=== PATIENT | male | born 1985 | race Hispanic/Latino ===

== ENCOUNTER 2018-01-14 23:49 | Emergency (ER) | payer MEDICAID ==
[2018-01-14] MEDS ORDERED: ASPIRIN 325 MG TABLET ONE (23:59)
[2018-01-14] MEDS ORDERED: ONDANSETRON HCL 4 MG/2 ML VIAL ONE (23:59)
[2018-01-15 00:29] LABS: BASOPHILS % (AUTO) 0.4 % (0.0-5.0); HEMATOCRIT 41.4 % (42-54); MEAN CORPUSCULAR HEMOGLOBIN 30.7 pg (27.0-33.0); MEAN CORPUSCULAR HGB CONC 34.6 g/dL (32.0-36.0); MEAN CORPUSCULAR VOLUME 88.7 fL (79-99); MONOCYTES % (AUTO) 2.9 % (3.0-13.0); NEUTROPHILS % (AUTO) 84.7 % (40.0-77.0); PLATELET COUNT (AUTO) 339 K/uL (130-400); RED BLOOD CELL COUNT(AUTO) 4.67 MIL/uL (4.50-6.20); RED CELL DISTRIBUTION WIDTH 12.7 % (11.0-15.5)
[2018-01-15 00:39] LABS: CREATININE 2.1 mg/dL (0.5-1.5); POTASSIUM 4.7 mmol/L (3.5-5.1)
[2018-01-15 00:41] LABS: INR 1.02 (0.85-1.15); PARTIAL THROMBOPLASTIN TIME 24.5 SEC (26.3-35.5); PROTHROMBIN TIME 10.7 SEC (9.6-11.6)
[2018-01-15 00:43] LABS: AMPHET/METH SCREEN,URINE NEGATIVE (NEGATIVE); BARBITURATE SCREEN, URINE NEGATIVE (NEGATIVE); BENZODIAZEPINES SCREEN,URINE POSITIVE (NEGATIVE); CANNABINOID SCREEN,URINE POSITIVE (NEGATIVE); COCAINE SCREEN,URINE NEGATIVE (NEGATIVE); OPIATE SCREEN,URINE NEGATIVE (NEGATIVE); PHENCYCLIDINE SCREEN,URINE NEGATIVE (NEGATIVE)
[2018-01-15 00:53] LABS: ALBUMIN 4.1 g/dL (3.5-5.0); BILIRUBIN,TOTAL 0.4 mg/dL (0.2-1.0); TOTAL PROTEIN, SERUM 7.8 g/dL (6.0-8.3)
[2018-01-15 00:59] LABS: B-TYPE NATRIURETIC PEPTIDE 15 pg/mL (0-100)
[2018-01-15] MEDS ORDERED: SODIUM CHLORIDE 0.9% 1000ML 1,000 ML IV ONE (01:06)
== END 2018-01-15 01:39 | disposition home or self-care (01) ==
LOC: EDH 23:49
DX: R07.89 Other chest pain (principal); E78.5 Hyperlipidemia, unspecified; I10 Essential (primary) hypertension; Z87.891 Personal history of nicotine dependence
CPT/HCPCS: 36415; 71045; 80053; 80305; 82550; 83880; 84484; 85025; 85610; 85730; 93005; 94761; 96374; 99285; J2405; J7030

== ENCOUNTER 2018-06-24 22:51 | Emergency (ER) | payer MEDICAID ==
[2018-06-24 23:13] LABS: APPEARANCE,URINE Clear (CLEAR); BILIRUBIN,URINE Negative (NEGATIVE); COLOR,URINE Yellow (YELLOW); GLUCOSE, URINE (UA) Negative (NEGATIVE); KETONES,URINE Negative (NEGATIVE); LEUKOCYTE ESTERASE ,URINE Negative (NEGATIVE); NITRATE,URINE Negative (NEGATIVE); OCCULT BLOOD,URINE Negative (NEGATIVE); PROTEIN,URINE Negative (NEGATIVE); UROBILINOGEN,URINE 0.2 mg/dL (0.2-1.0)
[2018-06-24 23:22] LABS: AMPHET/METH SCREEN,URINE NEGATIVE (NEGATIVE); BARBITURATE SCREEN, URINE NEGATIVE (NEGATIVE); BENZODIAZEPINES SCREEN,URINE POSITIVE (NEGATIVE); CANNABINOID SCREEN,URINE POSITIVE (NEGATIVE); COCAINE SCREEN,URINE NEGATIVE (NEGATIVE); OPIATE SCREEN,URINE NEGATIVE (NEGATIVE); PHENCYCLIDINE SCREEN,URINE NEGATIVE (NEGATIVE)
[2018-06-24] MEDS ORDERED: ACETAMINOPHEN-CODEINE 300/30MG TAB ONE (23:54)
[2018-06-25 00:10] LABS: EOSINOPHILS % (AUTO) 2.2 % (0.0-8.0); HEMATOCRIT 36.7 % (42-54); LYMPHOCYTES % (AUTO) 39.6 % (21.0-51.0); MEAN CORPUSCULAR HEMOGLOBIN 30.7 pg (27.0-33.0); MEAN CORPUSCULAR VOLUME 87.6 fL (79-99); MONOCYTES % (AUTO) 7.5 % (3.0-13.0); NEUTROPHILS % (AUTO) 49.7 % (40.0-77.0); PLATELET COUNT (AUTO) 273 K/uL (130-400); RED CELL DISTRIBUTION WIDTH 13.5 % (11.0-15.5); WHITE BLOOD COUNT (AUTO) 7.1 K/uL (4.8-10.8)
[2018-06-25 00:18] LABS: CREATININE 1.1 mg/dL (0.5-1.5); POTASSIUM 3.3 mmol/L (3.5-5.1)
[2018-06-25 00:32] LABS: ALBUMIN 3.7 g/dL (3.5-5.0); BILIRUBIN,TOTAL 0.3 mg/dL (0.2-1.0); TOTAL PROTEIN, SERUM 7.1 g/dL (6.0-8.3)
[2018-06-25] MEDS ORDERED: SODIUM CHLORIDE 0.9% 1000ML 2,000 ML IV ONE (00:50)
[2018-06-25] MEDS ORDERED: KETOROLAC TROMETHAMINE 30MG/ML ONE (01:11)
[2018-06-25] MEDS ORDERED: IOHEXOL-350 75 ML VIAL IV ONE (02:58)
== END 2018-06-25 04:41 | disposition home or self-care (01) ==
LOC: EDH 22:51
CPT/HCPCS: 36415; 71101; 74177; 80053; 80305; 81003; 82550; 83690; 84484; 85025; 93005; 96361; 96374; J1885; J7030; Q9967

== ENCOUNTER 2018-12-12 22:22 | Emergency (ER) | payer MEDICAID ==
[2018-12-12] MEDS ORDERED: ASPIRIN 325 MG TABLET ONE (23:18)
[2018-12-12 23:37] LABS: BASOPHILS % (AUTO) 0.9 % (0.0-5.0); HEMATOCRIT 36.5 % (42-54); MEAN CORPUSCULAR HEMOGLOBIN 29.5 pg (27.0-33.0); MEAN CORPUSCULAR VOLUME 86.9 fL (79-99); MONOCYTES % (AUTO) 8.2 % (3.0-13.0); NEUTROPHILS % (AUTO) 56.9 % (40.0-77.0); NUCLEATED RED BLOOD CELLS 0.1 % (0.0-0.19); PLATELET COUNT (AUTO) 283 K/uL (130-400); WHITE BLOOD COUNT (AUTO) 10.1 K/uL (4.8-10.8)
[2018-12-12 23:38] LABS: APPEARANCE,URINE Clear (CLEAR); BILIRUBIN,URINE Negative (NEGATIVE); COLOR,URINE Yellow (YELLOW); GLUCOSE, URINE (UA) Negative (NEGATIVE); KETONES,URINE Negative (NEGATIVE); LEUKOCYTE ESTERASE ,URINE Negative (NEGATIVE); NITRATE,URINE Negative (NEGATIVE); OCCULT BLOOD,URINE Negative (NEGATIVE); PH,URINE 5.5 (5.0-8.0); PROTEIN,URINE Negative (NEGATIVE)
[2018-12-12 23:44] LABS: CREATININE 1.3 mg/dL (0.5-1.5); POTASSIUM 3.9 mmol/L (3.5-5.1)
[2018-12-12 23:45] LABS: AMPHET/METH SCREEN,URINE NEGATIVE (NEGATIVE); BARBITURATE SCREEN, URINE NEGATIVE (NEGATIVE); BENZODIAZEPINES SCREEN,URINE POSITIVE (NEGATIVE); CANNABINOID SCREEN,URINE POSITIVE (NEGATIVE); COCAINE SCREEN,URINE NEGATIVE (NEGATIVE); OPIATE SCREEN,URINE POSITIVE (NEGATIVE); PHENCYCLIDINE SCREEN,URINE NEGATIVE (NEGATIVE)
[2018-12-12 23:45] LABS: INR 0.97 (0.85-1.15); PARTIAL THROMBOPLASTIN TIME 23.1 SEC (26.3-35.5); PROTHROMBIN TIME 10.2 SEC (9.6-11.6)
[2018-12-12 23:49] LABS: ALBUMIN 3.7 g/dL (3.5-5.0); BILIRUBIN,TOTAL 0.1 mg/dL (0.2-1.0); TOTAL PROTEIN, SERUM 7.3 g/dL (6.0-8.3)
[2018-12-12 23:52] LABS: AMYLASE 52 U/L (25-115); LIPASE 190 U/L (114-286)
== END 2018-12-13 01:12 | disposition home or self-care (01) ==
LOC: EDH 22:22
DX: S50.12XA Contusion of left forearm, initial encounter (principal); R07.89 Other chest pain; G40.802 Other epilepsy, not intractable, without status epilepticus; F12.10 Cannabis abuse, uncomplicated; T42.4X5A Adverse effect of benzodiazepines, initial encounter; I10 Essential (primary) hypertension; E78.5 Hyperlipidemia, unspecified; I25.2 Old myocardial infarction; Z72.0 Tobacco use; Z79.899 Other long term (current) drug therapy; X58.XXXA Exposure to other specified factors, initial encounter; Y93.89 Activity, other specified; Y92.89 Other specified places as the place of occurrence of the external cause; Y99.8 Other external cause status
CPT/HCPCS: 36415; 71045; 80053; 80305; 81003; 82150; 82550; 83690; 84484; 85025; 85610; 85730; 93005

== ENCOUNTER 2019-02-02 00:05 | Emergency (ER) | payer MEDICAID ==
[2019-02-02] MEDS ORDERED: ONDANSETRON HCL 4 MG/2 ML VIAL ONE (00:43)
[2019-02-02] MEDS ORDERED: MORPHINE SULFATE 4 MG/1ML SYG ONE (00:43)
[2019-02-02] MEDS ORDERED: SODIUM CHLORIDE 0.9% 1000ML 1,000 ML IV ONE (02:31)
[2019-02-02] MEDS ORDERED: HYDROCODONE/ACETAMINOPHEN 5/325 MG TAB ONE (02:31)
[2019-02-02] MEDS ORDERED: LIDOCAINE HCL 1% 20 ML VIAL ONE (02:46)
== END 2019-02-02 03:42 | disposition home or self-care (01) ==
LOC: EDH 00:05
DX: S01.01XA Laceration without foreign body of scalp, initial encounter (principal); S60.221A Contusion of right hand, initial encounter; E78.5 Hyperlipidemia, unspecified; I10 Essential (primary) hypertension; I25.2 Old myocardial infarction; F12.10 Cannabis abuse, uncomplicated; Z79.82 Long term (current) use of aspirin; Z79.899 Other long term (current) drug therapy; W22.03XA Walked into furniture, initial encounter; Y93.89 Activity, other specified; Y92.098 Other place in other non-institutional residence as the place of occurrence of the external cause; Y99.8 Other external cause status
CPT/HCPCS: 12034; 70450; 72040; 73130; 96374; 96375; 99284; J2270; J2405; J7030

== ENCOUNTER 2019-05-11 13:25 | Emergency (ER) | payer MEDICAID ==
[~2019-05-11 13:25] MED LIST: ASPI-1181 PO; BUPR200T34 PO; DILT240C46 PO; FENO145T37 PO; IPRA21SP NS; MOME13HF IH; SIMV10TA6 PO
[2019-05-11] MEDS ORDERED: ACETAMINOPHEN EXTRA STRENGTH 500 MG TABLET ONE (13:45)
== END 2019-05-11 15:05 | disposition home or self-care (01) ==
LOC: EDH 13:25
DX: S63.91XA Sprain of unspecified part of right wrist and hand, initial encounter (principal); S60.221A Contusion of right hand, initial encounter; E78.5 Hyperlipidemia, unspecified; I10 Essential (primary) hypertension; I25.2 Old myocardial infarction; Z72.0 Tobacco use; W51.XXXA Accidental striking against or bumped into by another person, initial encounter; Y93.89 Activity, other specified; Y92.89 Other specified places as the place of occurrence of the external cause; Y99.8 Other external cause status
CPT/HCPCS: 73110; 73130

== ENCOUNTER 2019-05-17 22:08 | Inpatient (IN) | payer MEDICAID ==
[~2019-05-17] VITALS: Ht 172.7 cm; Wt 97.5 kg
[~2019-05-17 22:08] MED LIST changes: -SIMV10TA6 PO; +SIMV10TA97 PO
[2019-05-17 22:29] LABS: BASOPHILS % (AUTO) 1.9 % (0.0-5.0); EOSINOPHILS % (AUTO) 2.1 % (0.0-8.0); HEMATOCRIT 30.4 % (42-54); LYMPHOCYTES % (AUTO) 39.3 % (21.0-51.0); MEAN CORPUSCULAR HEMOGLOBIN 26.7 pg (27.0-33.0); MEAN CORPUSCULAR HGB CONC 33.6 g/dL (32.0-36.0); MEAN CORPUSCULAR VOLUME 79.6 fL (79-99); MONOCYTES % (AUTO) 7.1 % (3.0-13.0); NEUTROPHILS % (AUTO) 49.6 % (40.0-77.0); NUCLEATED RED BLOOD CELLS 0.1 % (0.0-0.19); PLATELET COUNT (AUTO) 378 K/uL (130-400); RED BLOOD CELL COUNT(AUTO) 3.82 MIL/uL (4.50-6.20); RED CELL DISTRIBUTION WIDTH 15.6 % (11.0-15.5); WHITE BLOOD COUNT (AUTO) 8.2 K/uL (4.8-10.8)
[2019-05-17] MEDS ORDERED: THIAMINE HCL 100 MG/ML 2ML VIAL ONE (22:34)
[2019-05-17] MEDS ORDERED: SODIUM CHLORIDE 0.9% 1000ML 1,000 ML IV ONE (22:34)
[2019-05-17] MEDS ORDERED: SODIUM CHLORIDE 0.9% 100 ML IV ONE ×2 (22:34→23:01)
[2019-05-17 22:43] LABS: CARBON DIOXIDE 27 mmol/L (21-32); CHLORIDE 102 mmol/L (101-111); CREATININE 1.3 mg/dL (0.5-1.5); GLOMERULAR FILTR. RATE CALC 67 mL/min (>60); GLUCOSE,RANDOM 97 mg/dL (70-105); POTASSIUM 3.7 mmol/L (3.5-5.1); SODIUM SERUM 141 mmol/L (136-145); UREA NITROGEN, BLOOD 8 mg/dL (7-18)
[2019-05-17 22:46] LABS: INR 1.06 (0.85-1.15); PARTIAL THROMBOPLASTIN TIME 22.6 SEC (26.3-35.5); PROTHROMBIN TIME 11.1 SEC (9.6-11.6)
[2019-05-17 23:02] LABS: ALANINE AMINOTRANSFERASE 56 U/L (12-78); ALBUMIN 3.8 g/dL (3.5-5.0); ALCOHOL, BLOOD 146 mg/dL (0-10); AMYLASE 47 U/L (25-115); ASPARTATE AMINOTRANSFERASE 35 U/L (10-37); BILIRUBIN,TOTAL 0.2 mg/dL (0.2-1.0); CREATINE KINASE, TOTAL 240 U/L (21-232); LIPASE 256 U/L (114-286); TOTAL PROTEIN, SERUM 7.1 g/dL (6.0-8.3)
[2019-05-17 23:06] LABS: ACETAMINOPHEN < 1 mcg/mL (10-29); SALICYLATE < 2.8 mg/dL (2.8-20.0)
[2019-05-17 23:35] LABS: APPEARANCE,URINE Clear (CLEAR); BILIRUBIN,URINE Negative (NEGATIVE); COLOR,URINE Yellow (YELLOW); GLUCOSE, URINE (UA) Negative (NEGATIVE); KETONES,URINE Negative (NEGATIVE); LEUKOCYTE ESTERASE ,URINE Negative (NEGATIVE); NITRATE,URINE Negative (NEGATIVE); OCCULT BLOOD,URINE Negative (NEGATIVE); PH,URINE 5.5 (5.0-8.0); PROTEIN,URINE Negative (NEGATIVE); UROBILINOGEN,URINE 0.2 mg/dL (0.2-1.0)
[2019-05-18] VITALS (7 sets, daily range): BP systolic 111–156; BP diastolic 71–103
[2019-05-18] MEDS ORDERED: CHLORDIAZEPOXIDE HCL 25 MG CAP PO PRN ×2
[2019-05-18] MEDS ORDERED: PHARMACY COMMUNICATION MISC PRN
[2019-05-18] MEDS ORDERED: LORAZEPAM 2 MG/ML 1 ML VIAL IVP PRN
[2019-05-18] MEDS ORDERED: ONDANSETRON HCL 4 MG/2 ML VIAL IV PRN
[2019-05-18] MEDS ORDERED: M.V.I. IV [ADULT] 10 ML VIAL IV ONE (00:20)
[2019-05-18] MEDS ORDERED: THIAMINE HCL 100 MG/ML 2ML VIAL ONE (00:20)
[2019-05-18] MEDS ORDERED: FOLIC ACID 5 MG/ML 10 ML VIAL ONE (00:22)
[2019-05-18] MEDS ORDERED: SODIUM CHLORIDE 0.9% 1000ML 1,000 ML IV ONE (00:24)
[2019-05-18 00:25] LABS: AMPHET/METH SCREEN,URINE NEGATIVE (NEGATIVE); BARBITURATE SCREEN, URINE NEGATIVE (NEGATIVE); BENZODIAZEPINES SCREEN,URINE POSITIVE (NEGATIVE); CANNABINOID SCREEN,URINE POSITIVE (NEGATIVE); COCAINE SCREEN,URINE NEGATIVE (NEGATIVE); OPIATE SCREEN,URINE NEGATIVE (NEGATIVE); PHENCYCLIDINE SCREEN,URINE NEGATIVE (NEGATIVE)
[2019-05-18] MEDS: PANTOPRAZOLE SODIUM 80 MG in SODIUM CHLORIDE 0.9% 100 ML IV SCH ×3 (01:00→21:22)
--- NOTE | 2019-05-18 02:21 | NUR ---
RECEIVED PT FROM ED PT A/A/O X3. IV FLUIDS INFUSING BILAT INTO L/R AC 18 G PIV. PT ON RA, NO S/S OF RESP DISTRESS. NO C/O CHEST PAIN. PT HAS HANDCUFFS TO LEFT WRIST FASTENED AND A SAULT [employer] SITE SAFETY MANAGER AT BEDSIDE. SEIZURE PRECAUTIONS IMPLEMENTED AT THIS TIME. LAST KNOWN SEIZURE WAS 3 MONTHS AGO, A LACERATION TO THE TOP OF HIS HEAD RESULTED FROM FALLING AND HITTING HIS HEAD DURING THE SEIZURE. WILL CONTINUE TO MONITOR.
--- NOTE | 2019-05-18 02:30 | NUR ---
MELLYIA PT SCORED A 5. NO MEDICATIONS ADMINISTERED AT THIS TIME.
[2019-05-18] MEDS ORDERED: OMEP40CA13 PO (03:20)
[2019-05-18] MEDS ORDERED: DOXA2TAB2 PO (03:20)
[2019-05-18] MEDS ORDERED: IRON1CAP32 PO (03:20)
[2019-05-18] MEDS ORDERED: MULT-1224 PO (03:20)
[2019-05-18] MEDS ORDERED: HYD25 PO (03:20)
[2019-05-18] MEDS ORDERED: CETI10TA57 PO (03:20)
[2019-05-18] MEDS ORDERED: SERT25TA5 PO (03:20)
--- NOTE | 2019-05-18 03:20 | NUR ---
PAIN C/O PAIN TO ABDOMEN AREA. PAGED HOSPITALIST. PIERCE BARNES ORDERED MAALOX AT THIS TIME PRN. ORDERS ENTERED INTO Nor1.
[2019-05-18] MEDS ORDERED: MAG HYDROX/AL HYDROX/SIMETH ES 30 ML SUSP UDCUP PO PRN (03:30)
--- NOTE | 2019-05-18 05:09 | NUR ---
HOME MEDS ENTERED INFORMED CHURN DRILL OPERATOR MOLLY THAT HOME MEDS HAVE BEEN UPDATED IN SYSTEM FOR REVIEW.
[2019-05-18 06:36] LABS: BASOPHILS % (AUTO) 0.8 % (0.0-5.0); EOSINOPHILS % (AUTO) 2.2 % (0.0-8.0); HEMATOCRIT 29.9 % (42-54); LYMPHOCYTES % (AUTO) 38.8 % (21.0-51.0); MEAN CORPUSCULAR HEMOGLOBIN 26.9 pg (27.0-33.0); MEAN CORPUSCULAR HGB CONC 33.4 g/dL (32.0-36.0); MEAN CORPUSCULAR VOLUME 80.5 fL (79-99); MONOCYTES % (AUTO) 8.3 % (3.0-13.0); NEUTROPHILS % (AUTO) 49.9 % (40.0-77.0); PLATELET COUNT (AUTO) 322 K/uL (130-400); RED BLOOD CELL COUNT(AUTO) 3.71 MIL/uL (4.50-6.20); RED CELL DISTRIBUTION WIDTH 15.3 % (11.0-15.5); WHITE BLOOD COUNT (AUTO) 7.9 K/uL (4.8-10.8)
[2019-05-18 08:36] LABS: CREATININE 1.2 mg/dL (0.5-1.5); POTASSIUM 3.7 mmol/L (3.5-5.1)
[2019-05-18] MEDS: BUPROPION HCL 100 MG PO SCH ×2 (09:00→19:42)
[2019-05-18] MEDS: FE FUMARATE/FA/MV, MIN COMB#15 1 TAB PO SCH (09:00)
[2019-05-18] MEDS: MULTIVITAMIN WITH MINERALS TABLET PO SCH (09:00)
[2019-05-18] MEDS: ASPIRIN 81 MG EC TAB PO SCH (09:00)
[2019-05-18] MEDS: FENOFIBRATE NANOCRYSTALLIZED 145 MG TAB PO SCH (09:00)
[2019-05-18] MEDS: HYDROXYZINE HCL 25 MG TABLET PO SCH ×2 (09:00→19:41)
[2019-05-18] MEDS: SERTRALINE HCL 50 MG TABLET PO SCH (09:00)
[2019-05-18] MEDS: DILTIAZEM HCL 120 MG CAP.SR.24H PO SCH (09:00)
[2019-05-18] MEDS: CETIRIZINE HCL 5 MG TABLET PO SCH (09:00)
[2019-05-18] MEDS: THIAMINE HCL 100 MG, FOLIC ACID 1 MG, M.V.I. IV [ADULT] 10 ML in SODIUM CHLORIDE 0.9% 1... IV SCH ×5 (09:32)
[2019-05-18 12:38] LABS: HEMATOCRIT 30.4 % (42-54)
--- NOTE | 2019-05-18 15:25 | NUR ---
INITIAL: Met w pt this afternoon, police pilot @ the bedside. Per pt prior to admission was living w parents/ and children. He mentions that prior to admission he was independent w ambulation and ADLs. He does not own any DME or receive services. CM to continue to follow and wait for Md recommendations. Pt is currently under police custody. Addendum: 05/18/19 at 1527 by NAI ADAMS CM Amended: Links added.
[2019-05-18 16:00] LABS: HEMATOCRIT 30.6 % (42-54)
[2019-05-18] MEDS: MORPHINE SULFATE 2 MG/ML 1ML SYG IVP PRN ×2 (19:39→23:32)
[2019-05-18] MEDS: DOXAZOSIN MESYLATE 2 MG TABLET PO SCH (19:41)
[2019-05-18] MEDS: SIMVASTATIN 10 MG TABLET PO SCH (19:42)
[2019-05-18 19:49] LABS: HEMATOCRIT 31.8 % (42-54)
[2019-05-18] MEDS: LORAZEPAM 2 MG/ML 1 ML VIAL IVP PRN (22:39)
[2019-05-19] VITALS (22 sets, daily range): BP systolic 110–147; BP diastolic 65–100
[2019-05-19 00:03] LABS: HEMATOCRIT 30.4 % (42-54)
[2019-05-19] MEDS: MORPHINE SULFATE 2 MG/ML 1ML SYG IVP PRN ×4 (03:35→19:55)
[2019-05-19] MEDS: LORAZEPAM 2 MG/ML 1 ML VIAL IVP PRN ×3 (04:47→15:04)
[2019-05-19 04:59] LABS: BASOPHILS % (AUTO) 1.2 % (0.0-5.0); HEMATOCRIT 32.5 % (42-54); LYMPHOCYTES % (AUTO) 39.3 % (21.0-51.0); MEAN CORPUSCULAR HEMOGLOBIN 26.5 pg (27.0-33.0); MEAN CORPUSCULAR HGB CONC 33.1 g/dL (32.0-36.0); MEAN CORPUSCULAR VOLUME 80.1 fL (79-99); MONOCYTES % (AUTO) 8.5 % (3.0-13.0); PLATELET COUNT (AUTO) 363 K/uL (130-400); RED BLOOD CELL COUNT(AUTO) 4.06 MIL/uL (4.50-6.20); RED CELL DISTRIBUTION WIDTH 15.6 % (11.0-15.5); WHITE BLOOD COUNT (AUTO) 7.7 K/uL (4.8-10.8)
[2019-05-19 05:08] LABS: CREATININE 1.3 mg/dL (0.5-1.5); POTASSIUM 3.8 mmol/L (3.5-5.1)
[2019-05-19] MEDS: BUPROPION HCL 100 MG PO SCH ×2 (09:00→19:55)
[2019-05-19] MEDS: PANTOPRAZOLE SODIUM 80 MG in SODIUM CHLORIDE 0.9% 100 ML IV SCH ×2 (09:06→17:38)
[2019-05-19] MEDS: THIAMINE HCL 100 MG, FOLIC ACID 1 MG, M.V.I. IV [ADULT] 10 ML in SODIUM CHLORIDE 0.9% 1... IV SCH (09:14)
--- NOTE | 2019-05-19 12:00 | NUR ---
PATIENT TAKEN DOWNSTAIRS FOR EGD AWAKE AND ALERT, VOICES NO COMPLAINTS
[2019-05-19] MEDS ORDERED: PROPOFOL 10 MG/ML 20ML VIAL IV ONE ×2 (12:51→12:55)
[2019-05-19 14:59] LABS: BASOPHILS % (AUTO) 1.6 % (0.0-5.0); EOSINOPHILS % (AUTO) 3.8 % (0.0-8.0); HEMATOCRIT 31.3 % (42-54); LYMPHOCYTES % (AUTO) 33.4 % (21.0-51.0); MEAN CORPUSCULAR HEMOGLOBIN 26.4 pg (27.0-33.0); MEAN CORPUSCULAR HGB CONC 33.1 g/dL (32.0-36.0); MEAN CORPUSCULAR VOLUME 79.6 fL (79-99); MONOCYTES % (AUTO) 8.4 % (3.0-13.0); NEUTROPHILS % (AUTO) 52.8 % (40.0-77.0); PLATELET COUNT (AUTO) 317 K/uL (130-400); RED BLOOD CELL COUNT(AUTO) 3.93 MIL/uL (4.50-6.20)
[2019-05-19] MEDS: FENOFIBRATE NANOCRYSTALLIZED 145 MG TAB PO SCH (15:07)
[2019-05-19] MEDS: ASPIRIN 81 MG EC TAB PO SCH (15:07)
[2019-05-19] MEDS: FE FUMARATE/FA/MV, MIN COMB#15 1 TAB PO SCH (15:07)
[2019-05-19] MEDS: SERTRALINE HCL 50 MG TABLET PO SCH (15:07)
[2019-05-19] MEDS: MULTIVITAMIN WITH MINERALS TABLET PO SCH (15:07)
[2019-05-19] MEDS: HYDROXYZINE HCL 25 MG TABLET PO SCH ×2 (15:08→19:54)
[2019-05-19] MEDS: DILTIAZEM HCL 120 MG CAP.SR.24H PO SCH (15:08)
[2019-05-19] MEDS: CETIRIZINE HCL 5 MG TABLET PO SCH (15:08)
[2019-05-19 15:10] LABS: CREATININE 1.1 mg/dL (0.5-1.5); POTASSIUM 3.8 mmol/L (3.5-5.1)
[2019-05-19 15:11] LABS: INR 1.03 (0.85-1.15); PROTHROMBIN TIME 10.8 SEC (9.6-11.6)
[2019-05-19] MEDS ORDERED: PEG 3350/NA SULF,BICARB,CL/KCL 4000 ML SOLN PO SCH (17:00)
[2019-05-19] MEDS: SIMVASTATIN 10 MG TABLET PO SCH (19:54)
[2019-05-19] MEDS: DOXAZOSIN MESYLATE 2 MG TABLET PO SCH (19:54)
[2019-05-20] VITALS (17 sets, daily range): BP systolic 103–166; BP diastolic 63–91
[2019-05-20] MEDS: MORPHINE SULFATE 2 MG/ML 1ML SYG IVP PRN (00:21)
[2019-05-20] MEDS: PANTOPRAZOLE SODIUM 80 MG in SODIUM CHLORIDE 0.9% 100 ML IV SCH ×2 (00:22→13:40)
[2019-05-20] MEDS: LORAZEPAM 2 MG/ML 1 ML VIAL IVP PRN ×2 (01:29→12:43)
[2019-05-20 04:58] LABS: BASOPHILS % (AUTO) 0.9 % (0.0-5.0); EOSINOPHILS % (AUTO) 3.7 % (0.0-8.0); HEMATOCRIT 30.7 % (42-54); LYMPHOCYTES % (AUTO) 35.8 % (21.0-51.0); MEAN CORPUSCULAR HEMOGLOBIN 26.9 pg (27.0-33.0); MEAN CORPUSCULAR HGB CONC 33.4 g/dL (32.0-36.0); MEAN CORPUSCULAR VOLUME 80.3 fL (79-99); MONOCYTES % (AUTO) 8.7 % (3.0-13.0); NEUTROPHILS % (AUTO) 50.9 % (40.0-77.0); NUCLEATED RED BLOOD CELLS 0.1 % (0.0-0.19); PLATELET COUNT (AUTO) 296 K/uL (130-400); RED BLOOD CELL COUNT(AUTO) 3.82 MIL/uL (4.50-6.20); RED CELL DISTRIBUTION WIDTH 15.5 % (11.0-15.5); WHITE BLOOD COUNT (AUTO) 6.5 K/uL (4.8-10.8)
[2019-05-20 05:35] LABS: ALBUMIN 3.6 g/dL (3.5-5.0); BILIRUBIN,TOTAL 0.8 mg/dL (0.2-1.0); CREATININE 1.2 mg/dL (0.5-1.5); POTASSIUM 3.7 mmol/L (3.5-5.1)
--- NOTE | 2019-05-20 08:15 | NUR ---
Pt off the floor for colonoscopy at this time
[2019-05-20] MEDS ORDERED: PROPOFOL 10 MG/ML 20ML VIAL IV ONE ×2 (08:26)
[2019-05-20] MEDS: FENOFIBRATE NANOCRYSTALLIZED 145 MG TAB PO SCH (09:00)
[2019-05-20] MEDS: DILTIAZEM HCL 120 MG CAP.SR.24H PO SCH (09:00)
[2019-05-20] MEDS: ASPIRIN 81 MG EC TAB PO SCH (09:00)
[2019-05-20] MEDS: BUPROPION HCL 100 MG PO SCH (09:00)
[2019-05-20] MEDS: SERTRALINE HCL 50 MG TABLET PO SCH (09:00)
[2019-05-20] MEDS: MULTIVITAMIN WITH MINERALS TABLET PO SCH (09:00)
[2019-05-20] MEDS: CETIRIZINE HCL 5 MG TABLET PO SCH (09:00)
[2019-05-20] MEDS: HYDROXYZINE HCL 25 MG TABLET PO SCH (09:00)
[2019-05-20] MEDS: FE FUMARATE/FA/MV, MIN COMB#15 1 TAB PO SCH (09:00)
[2019-05-20] MEDS: THIAMINE HCL 100 MG, FOLIC ACID 1 MG, M.V.I. IV [ADULT] 10 ML in SODIUM CHLORIDE 0.9% 1... IV SCH (09:30)
[2019-05-20] MEDS ORDERED: PHARMACY COMMUNICATION MISC SCH ×2 (11:30)
[2019-05-20] MEDS ORDERED: PSYLLIUM SEED 1 EACH PACKET PO SCH (11:50)
[2019-05-20] MEDS ORDERED: HYD25 PO (15:18)
--- NOTE | 2019-05-20 16:51 | NUR ---
Pt discharge in custody with [facility] department, home meds resumed, pt verbarlized understanding of d/c instruction, pt to follow up Dr. Harris in one week for pathology results, follow up with PCP for transition care, pt d/c on high fiber diet, PIV taken off, no complication noted, pt escorted with Conservation Planner off the floor.
== END 2019-05-20 16:25 | DRG 253 ==
LOC: EDH 22:08 → OBSVTOIN 23:40 → EDHIP 23:40 → EEVIPCON 23:40 → 3CH 05-18 02:19
PROVIDERS: ADMIT Hospitalist; ATTEND Hospitalist
PROC: 0DB68ZX Excision of Stomach, Via Natural or Artificial Opening Endoscopic, Diagnostic (ICD-10-PCS; 2019-05-19)
PROC: 0DB48ZX Excision of Esophagogastric Junction, Via Natural or Artificial Opening Endoscopic, Diagnostic (ICD-10-PCS; 2019-05-19)
PROC: 0DBN8ZZ Excision of Sigmoid Colon, Via Natural or Artificial Opening Endoscopic (ICD-10-PCS; principal; 2019-05-20)
DX: K92.2 Gastrointestinal hemorrhage, unspecified (principal); D12.5 Benign neoplasm of sigmoid colon; E66.9 Obesity, unspecified; F10.129 Alcohol abuse with intoxication, unspecified; D50.9 Iron deficiency anemia, unspecified; K22.8 Other specified diseases of esophagus; K31.89 Other diseases of stomach and duodenum; I10 Essential (primary) hypertension; K64.8 Other hemorrhoids; K64.4 Residual hemorrhoidal skin tags; F19.10 Other psychoactive substance abuse, uncomplicated; E78.5 Hyperlipidemia, unspecified; G40.909 Epilepsy, unspecified, not intractable, without status epilepticus; J45.909 Unspecified asthma, uncomplicated; Z68.32 Body mass index [BMI] 32.0-32.9, adult; Z82.49 Family history of ischemic heart disease and other diseases of the circulatory system; Z82.3 Family history of stroke; Z83.3 Family history of diabetes mellitus; I25.2 Old myocardial infarction
CPT/HCPCS: 36415; 43239; 45380; 71045; 72100; 80048; 80053; 80061; 80305; 81003; 82150; 82270; 82550; 83690; 84484; 85014; 85018; 85025; 85610; 85730; 86850; 86900; 86901; 88305; 93005; 99291; A4606; C9113; G0378; G0480; G0481; J2060; J2704; J3411; J3490; J7030

== ENCOUNTER 2019-05-24 18:35 | Observation (INO) | payer MEDICAID ==
[~2019-05-24] VITALS: Ht 172.7 cm; Wt 111.5 kg
[~2019-05-24 18:35] MED LIST changes: +CETI10TA57 PO; +DOXA2TAB2 PO; +HYD25 PO; +IRON1CAP32 PO; +MULT-1224 PO; +OMEP40CA13 PO; +SERT25TA5 PO; +SIMV10TA6 PO; -SIMV10TA97 PO
[2019-05-24 18:52] LABS: BASOPHILS % (AUTO) 0.9 % (0.0-5.0); EOSINOPHILS % (AUTO) 2.1 % (0.0-8.0); HEMATOCRIT 34.8 % (42-54); LYMPHOCYTES % (AUTO) 27.8 % (21.0-51.0); MEAN CORPUSCULAR HEMOGLOBIN 26.5 pg (27.0-33.0); MEAN CORPUSCULAR HGB CONC 32.8 g/dL (32.0-36.0); MEAN CORPUSCULAR VOLUME 80.7 fL (79-99); MONOCYTES % (AUTO) 8.3 % (3.0-13.0); NEUTROPHILS % (AUTO) 60.9 % (40.0-77.0); PLATELET COUNT (AUTO) 335 K/uL (130-400); RED BLOOD CELL COUNT(AUTO) 4.32 MIL/uL (4.50-6.20); RED CELL DISTRIBUTION WIDTH 15.9 % (11.0-15.5); WHITE BLOOD COUNT (AUTO) 8.8 K/uL (4.8-10.8)
[2019-05-24 19:04] LABS: CREATININE 1.8 mg/dL (0.5-1.5); POTASSIUM 4.1 mmol/L (3.5-5.1)
[2019-05-24] MEDS ORDERED: THIAMINE HCL 100 MG/ML 2ML VIAL ONE (19:07)
[2019-05-24] MEDS ORDERED: SODIUM CHLORIDE 0.9% 1000ML 1,000 ML IV ONE ×2 (19:07→22:15)
[2019-05-24 19:09] LABS: ALBUMIN 4.1 g/dL (3.5-5.0); BILIRUBIN,TOTAL 0.2 mg/dL (0.2-1.0)
[2019-05-24] MEDS ORDERED: CHLORDIAZEPOXIDE HCL 25 MG CAP ONE (19:20)
[2019-05-24 20:00] LABS: APPEARANCE,URINE Turbid (CLEAR); BILIRUBIN,URINE Negative (NEGATIVE); COLOR,URINE Yellow (YELLOW); GLUCOSE, URINE (UA) Negative (NEGATIVE); KETONES,URINE Negative (NEGATIVE); LEUKOCYTE ESTERASE ,URINE Negative (NEGATIVE); NITRATE,URINE Negative (NEGATIVE); OCCULT BLOOD,URINE Negative (NEGATIVE); PH,URINE 6.5 (5.0-8.0); PROTEIN,URINE POS 1+ mg/dL (NEGATIVE); UROBILINOGEN,URINE 0.2 mg/dL (0.2-1.0)
[2019-05-24 20:09] LABS: AMPHET/METH SCREEN,URINE NEGATIVE (NEGATIVE); BARBITURATE SCREEN, URINE NEGATIVE (NEGATIVE); BENZODIAZEPINES SCREEN,URINE POSITIVE (NEGATIVE); CANNABINOID SCREEN,URINE POSITIVE (NEGATIVE); COCAINE SCREEN,URINE NEGATIVE (NEGATIVE); OPIATE SCREEN,URINE NEGATIVE (NEGATIVE); PHENCYCLIDINE SCREEN,URINE NEGATIVE (NEGATIVE)
[2019-05-24 20:31] LABS: AMORPHOUS SEDIMENT,UR Few /LPF (None Seen); BACTERIA,URINE Few /HPF (None Seen); MUCUS,URINE Many LPF (None Seen); RBC,URINE None Seen /HPF (0-1); SQUAMOUS EPITHELIAL CELL,UR None Seen /HPF (0-2); WBC,URINE 0-1 /HPF (0-1)
[2019-05-24 20:32] LABS: HYALINE CASTS, URINE 0-1 /LPF (0-1 /LPF)
[2019-05-24] MEDS ORDERED: FOSPHENYTOIN SODIUM 500 MG/10ML VIAL IJ ONE (21:19)
[2019-05-24] MEDS ORDERED: SODIUM CHLORIDE 0.9% 250 ML IV ONE (21:20)
[2019-05-24 23:50] VITALS: BP 153/99
[2019-05-25] MEDS ORDERED: FLU VACC QS2019-20 36MOS UP/PF 60 MCG/0.5 ML ML IM ONE (01:45)
[2019-05-25] MEDS ORDERED: SODIUM CHLORIDE 0.9% 1000ML 1,000 ML IV SCH (02:22)
[2019-05-25] MEDS ORDERED: HYDRALAZINE HCL 20 MG/ML VIAL IV PRN (02:30)
[2019-05-25] MEDS ORDERED: ONDANSETRON HCL 4 MG/2 ML VIAL IV PRN (02:30)
[2019-05-25] MEDS ORDERED: ACETAMINOPHEN 325 MG TAB PO PRN ×2 (02:30)
[2019-05-25 03:00] VITALS: BP 132/80
[2019-05-25] MEDS ORDERED: ACETAMINOPHEN 325 MG TAB ONE (03:18)
[2019-05-25 06:06] LABS: EOSINOPHILS % (AUTO) 1.4 % (0.0-8.0); HEMATOCRIT 29.6 % (42-54); LYMPHOCYTES % (AUTO) 27.3 % (21.0-51.0); MEAN CORPUSCULAR HEMOGLOBIN 26.8 pg (27.0-33.0); MEAN CORPUSCULAR HGB CONC 33.2 g/dL (32.0-36.0); MEAN CORPUSCULAR VOLUME 80.7 fL (79-99); MONOCYTES % (AUTO) 8.3 % (3.0-13.0); PLATELET COUNT (AUTO) 283 K/uL (130-400); RED BLOOD CELL COUNT(AUTO) 3.67 MIL/uL (4.50-6.20); RED CELL DISTRIBUTION WIDTH 16.2 % (11.0-15.5); WHITE BLOOD COUNT (AUTO) 9.4 K/uL (4.8-10.8)
[2019-05-25 06:13] LABS: CREATININE 1.5 mg/dL (0.5-1.5); POTASSIUM 3.6 mmol/L (3.5-5.1)
[2019-05-25 08:00] VITALS: BP 130/75
--- NOTE | 2019-05-25 08:00 | NUR ---
PT AAO X 3 REVIEW PLAN OF CARE PT DENIES ANY SEIZURES OR DISCOMFORT. CALM MONITOR .CALL LIGHT IN REACH....
[2019-05-25] MEDS ORDERED: FAMOTIDINE/PF 20 MG/2 ML VIAL IV SCH (09:00)
[2019-05-25] MEDS ORDERED: ENOXAPARIN SODIUM 30 MG/0.3 ML SQ SCH (09:00)
[2019-05-25 11:22] VITALS: BP 128/83
--- NOTE | 2019-05-25 13:00 | NUR ---
DC PLAN VISITED WITH PATIENT. PATIENT LIVES WITH SPOUSE. INDEPENDENT ABLE TO PERFORM ADL'S. PATIENT HAS NO SERVICES OR DME'S. WANTS MEDICATIONS FOR ALCOHOL WITHDRAWL. SAID HE STOPPED DRINKING AND USING THC 3 WEEKS AGO. PATIENT HAS SEEN DR. DE LA FUENTE FOR PTSD. Addendum: 05/25/19 at 1303 by AV NASSAR RN CM Amended: Links added.
[2019-05-25 16:00] VITALS: BP 134/92
--- NOTE | 2019-05-25 18:33 | NUR ---
DISCHARGE SUMMARY REVIEW WITH PT; AND TO FOLLOW WITH PRIVATE REGARDING A DRVangie TO TAKE CARE OF HIS SEIZURES . PT HAS A PRIVATE AND WILL BE SEEING DRVangie THIS COMING WEEKS, SL TO HIS LT HAND DC ,WITH NO REDNESS NOTED . A DRSG APPLICATION ON. DENIES ANY DISCOMFORT.
[2019-05-25] MEDS ORDERED: HYDROXYZINE HCL 25 MG TABLET PO SCH (21:00)
[2019-05-25] MEDS ORDERED: FAMOTIDINE 20MG TAB 20 MG TAB PO SCH (21:00)
[2019-05-25] MEDS ORDERED: DOXAZOSIN MESYLATE 2 MG TABLET PO SCH (21:00)
[2019-05-25] MEDS ORDERED: SIMVASTATIN 10 MG TABLET PO SCH (21:00)
[2019-05-26] MEDS ORDERED: MULTIVITAMIN WITH MINERALS TABLET PO SCH (09:00)
[2019-05-26] MEDS ORDERED: CETIRIZINE HCL 5 MG TABLET PO SCH (09:00)
[2019-05-26] MEDS ORDERED: FENOFIBRATE NANOCRYSTALLIZED 145 MG TAB PO SCH (09:00)
[2019-05-26] MEDS ORDERED: [UNRECOGNIZED DRUG - OTHER] PO SCH (09:00)
[2019-05-26] MEDS ORDERED: C NO 9 PO SCH (09:00)
[2019-05-26] MEDS ORDERED: IRON FUM PO SCH (09:00)
[2019-05-26] MEDS ORDERED: VIT B PO SCH (09:00)
[2019-05-26] MEDS ORDERED: SERTRALINE HCL 50 MG TABLET PO SCH (09:00)
== END 2019-05-25 18:25 | disposition home or self-care (01) ==
LOC: EDH 18:35 → EDHIP 18:36 → INTOOBSV 18:36 → EDHIP 22:01 → UNDOADMIN 22:01 → 3BH 22:44
PROVIDERS: ADMIT Internal Medicine; ATTEND Internal Medicine
DX: R55 Syncope and collapse (principal); I10 Essential (primary) hypertension; E78.5 Hyperlipidemia, unspecified; I25.2 Old myocardial infarction; G40.909 Epilepsy, unspecified, not intractable, without status epilepticus; F10.239 Alcohol dependence with withdrawal, unspecified; F12.20 Cannabis dependence, uncomplicated; E66.01 Morbid (severe) obesity due to excess calories; F17.290 Nicotine dependence, other tobacco product, uncomplicated; Z79.899 Other long term (current) drug therapy; Z23 Encounter for immunization; Z68.37 Body mass index [BMI] 37.0-37.9, adult
CPT/HCPCS: 36415 ×2; 70450; 80048; 80053; 80305; 81001; 82550; 84484; 85025 ×2; 90471; 96361; 96372; 96374; 99291; G0378 ×3; J1650; J3411; J3490; J7030 ×4; Q2009

== ENCOUNTER 2019-07-11 22:38 | Emergency (ER) | payer MEDICAID ==
[~2019-07-11 22:38] MED LIST changes: -ASPI-1181 PO; -SIMV10TA6 PO; +SIMV10TA97 PO
[2019-07-11] MEDS ORDERED: SODIUM CHLORIDE 0.9% 1000ML 2,000 ML IV ONE (22:49)
[2019-07-11 23:28] LABS: BASOPHILS % (AUTO) 0.8 % (0.0-5.0); HEMATOCRIT 37.4 % (42-54); LYMPHOCYTES % (AUTO) 43.4 % (21.0-51.0); MEAN CORPUSCULAR HEMOGLOBIN 26.8 pg (27.0-33.0); MEAN CORPUSCULAR VOLUME 81.2 fL (79-99); MONOCYTES % (AUTO) 6.5 % (3.0-13.0); NEUTROPHILS % (AUTO) 48.3 % (40.0-77.0); PLATELET COUNT (AUTO) 308 K/uL (130-400); RED BLOOD CELL COUNT(AUTO) 4.61 MIL/uL (4.50-6.20); RED CELL DISTRIBUTION WIDTH 17.4 % (11.0-15.5); WHITE BLOOD COUNT (AUTO) 9.8 K/uL (4.8-10.8)
[2019-07-11 23:30] LABS: CREATININE 1.3 mg/dL (0.5-1.5); POTASSIUM 3.3 mmol/L (3.5-5.1)
[2019-07-11 23:32] LABS: APPEARANCE,URINE Clear (CLEAR); BILIRUBIN,URINE Negative (NEGATIVE); COLOR,URINE Yellow (YELLOW); GLUCOSE, URINE (UA) Negative (NEGATIVE); KETONES,URINE Negative (NEGATIVE); LEUKOCYTE ESTERASE ,URINE Negative (NEGATIVE); NITRATE,URINE Negative (NEGATIVE); OCCULT BLOOD,URINE Negative (NEGATIVE); PH,URINE 5.5 (5.0-8.0); PROTEIN,URINE POS 1+ mg/dL (NEGATIVE); UROBILINOGEN,URINE 0.2 mg/dL (0.2-1.0)
[2019-07-11 23:37] LABS: ALBUMIN 3.8 g/dL (3.5-5.0); BILIRUBIN,TOTAL 0.2 mg/dL (0.2-1.0); TOTAL PROTEIN, SERUM 7.2 g/dL (6.0-8.3)
[2019-07-11 23:42] LABS: AMPHET/METH SCREEN,URINE NEGATIVE (NEGATIVE); BARBITURATE SCREEN, URINE NEGATIVE (NEGATIVE); BENZODIAZEPINES SCREEN,URINE POSITIVE (NEGATIVE); CANNABINOID SCREEN,URINE POSITIVE (NEGATIVE); COCAINE SCREEN,URINE POSITIVE (NEGATIVE); OPIATE SCREEN,URINE NEGATIVE (NEGATIVE); PHENCYCLIDINE SCREEN,URINE NEGATIVE (NEGATIVE)
[2019-07-11 23:46] LABS: BACTERIA,URINE Few /HPF (None Seen); RBC,URINE 0-1 /HPF (0-1); SQUAMOUS EPITHELIAL CELL,UR 0-2 /HPF (0-2); WBC,URINE 0-1 /HPF (0-1)
[2019-07-12] MEDS ORDERED: LEVETIRACETAM 500 MG/5 ML SD VIAL IV ONE (00:03)
[2019-07-12] MEDS ORDERED: DiphenhydrAMINE HCL 50 MG/ML VIAL ONE (00:04)
[2019-07-12] MEDS ORDERED: SODIUM CHLORIDE 0.9% 100 ML IV ONE (00:06)
== END 2019-07-12 03:32 | disposition home or self-care (01) ==
LOC: EDH 22:38
DX: F10.129 Alcohol abuse with intoxication, unspecified (principal); R56.9 Unspecified convulsions; E86.9 Volume depletion, unspecified; F14.10 Cocaine abuse, uncomplicated; I10 Essential (primary) hypertension; E78.5 Hyperlipidemia, unspecified; I25.2 Old myocardial infarction; Z79.899 Other long term (current) drug therapy; Z79.82 Long term (current) use of aspirin; Z72.0 Tobacco use
CPT/HCPCS: 36415 ×2; 80053; 80305; 81001; 82550; 83605 ×2; 84484; 85025; 93005; 96361; 96365; 96366; 96375; 99285; G0480; J1200; J1953; J7030

== ENCOUNTER 2019-07-22 20:58 | Emergency (ER) | payer MEDICAID ==
[2019-07-22 21:55] LABS: EOSINOPHILS % (AUTO) 1.2 % (0.0-8.0); HEMATOCRIT 38.2 % (42-54); LYMPHOCYTES % (AUTO) 35.5 % (21.0-51.0); MEAN CORPUSCULAR HEMOGLOBIN 26.2 pg (27.0-33.0); MEAN CORPUSCULAR HGB CONC 32.5 g/dL (32.0-36.0); MEAN CORPUSCULAR VOLUME 80.8 fL (79-99); NEUTROPHILS % (AUTO) 56.9 % (40.0-77.0); PLATELET COUNT (AUTO) 300 K/uL (130-400); RED BLOOD CELL COUNT(AUTO) 4.73 MIL/uL (4.50-6.20); RED CELL DISTRIBUTION WIDTH 15.9 % (11.0-15.5)
[2019-07-22 22:10] LABS: AMPHET/METH SCREEN,URINE NEGATIVE (NEGATIVE); BARBITURATE SCREEN, URINE NEGATIVE (NEGATIVE); BENZODIAZEPINES SCREEN,URINE POSITIVE (NEGATIVE); CANNABINOID SCREEN,URINE POSITIVE (NEGATIVE); COCAINE SCREEN,URINE POSITIVE (NEGATIVE); OPIATE SCREEN,URINE NEGATIVE (NEGATIVE); PHENCYCLIDINE SCREEN,URINE NEGATIVE (NEGATIVE); POTASSIUM 3.5 mmol/L (3.5-5.1)
[2019-07-22 22:14] LABS: BILIRUBIN,TOTAL 0.2 mg/dL (0.2-1.0); TOTAL PROTEIN, SERUM 7.6 g/dL (6.0-8.3)
== END 2019-07-22 23:06 | disposition home or self-care (01) ==
LOC: EDH 20:58
DX: G40.909 Epilepsy, unspecified, not intractable, without status epilepticus (principal); F19.10 Other psychoactive substance abuse, uncomplicated; E78.5 Hyperlipidemia, unspecified; I10 Essential (primary) hypertension; I25.2 Old myocardial infarction; F41.9 Anxiety disorder, unspecified; Z79.82 Long term (current) use of aspirin; Z79.899 Other long term (current) drug therapy; Z98.890 Other specified postprocedural states
CPT/HCPCS: 36415; 80053; 80177; 80305; 85025; 99284; G0480

== ENCOUNTER 2019-09-23 02:30 | Emergency (ER) | payer MEDICAID, OTHER ==
[~2019-09-23 02:30] MED LIST changes: +FENO145T26 PO; -FENO145T37 PO
[2019-09-23 03:32] LABS: EOSINOPHILS % (AUTO) 1.9 % (0.0-8.0); HEMATOCRIT 36.3 % (42-54); LYMPHOCYTES % (AUTO) 35.7 % (21.0-51.0); MEAN CORPUSCULAR HEMOGLOBIN 27.7 pg (27.0-33.0); MEAN CORPUSCULAR HGB CONC 33.6 g/dL (32.0-36.0); MEAN CORPUSCULAR VOLUME 82.3 fL (79-99); MONOCYTES % (AUTO) 9.6 % (3.0-13.0); NEUTROPHILS % (AUTO) 51.5 % (40.0-77.0); PLATELET COUNT (AUTO) 309 K/uL (130-400); RED BLOOD CELL COUNT(AUTO) 4.41 MIL/uL (4.50-6.20); RED CELL DISTRIBUTION WIDTH 13.2 % (11.0-15.5); WHITE BLOOD COUNT (AUTO) 7.2 K/uL (4.8-10.8)
[2019-09-23 04:18] LABS: CREATININE 1.2 mg/dL (0.5-1.5); POTASSIUM 3.4 mmol/L (3.5-5.1)
[2019-09-23 04:20] LABS: APPEARANCE,URINE Clear (CLEAR); BILIRUBIN,URINE Negative (NEGATIVE); COLOR,URINE Dark Yellow (YELLOW); GLUCOSE, URINE (UA) Negative (NEGATIVE); KETONES,URINE Trace mg/dL (NEGATIVE); LEUKOCYTE ESTERASE ,URINE Negative (NEGATIVE); NITRATE,URINE Negative (NEGATIVE); OCCULT BLOOD,URINE Negative (NEGATIVE); PROTEIN,URINE Trace mg/dL (NEGATIVE)
[2019-09-23 04:21] LABS: ALBUMIN 3.9 g/dL (3.5-5.0); BILIRUBIN,TOTAL 0.4 mg/dL (0.2-1.0); TOTAL PROTEIN, SERUM 7.3 g/dL (6.0-8.3)
[2019-09-23 04:27] LABS: AMPHET/METH SCREEN,URINE NEGATIVE (NEGATIVE); BARBITURATE SCREEN, URINE NEGATIVE (NEGATIVE); BENZODIAZEPINES SCREEN,URINE NEGATIVE (NEGATIVE); CANNABINOID SCREEN,URINE POSITIVE (NEGATIVE); COCAINE SCREEN,URINE NEGATIVE (NEGATIVE); OPIATE SCREEN,URINE NEGATIVE (NEGATIVE); PHENCYCLIDINE SCREEN,URINE NEGATIVE (NEGATIVE)
[2019-09-23 04:28] LABS: BACTERIA,URINE Few /HPF (None Seen); MUCUS,URINE Few LPF (None Seen); RBC,URINE 0-1 /HPF (0-1); SQUAMOUS EPITHELIAL CELL,UR 0-2 /HPF (0-2); WBC,URINE 0-1 /HPF (0-1)
[2019-09-23] MEDS ORDERED: ORPHENADRINE CITRATE 30 MG/ML ML ONE (05:24)
[2019-09-23] MEDS ORDERED: KETOROLAC TROMETHAMINE 30MG/ML ONE (05:24)
== END 2019-09-23 05:33 | disposition home or self-care (01) ==
LOC: EDH 02:30
DX: R07.89 Other chest pain (principal); R10.13 Epigastric pain; F41.9 Anxiety disorder, unspecified; E78.5 Hyperlipidemia, unspecified; I10 Essential (primary) hypertension; I25.2 Old myocardial infarction; Z79.899 Other long term (current) drug therapy
CPT/HCPCS: 36415; 71045; 80053; 80305; 81001; 83690; 84484; 85025; 93005; 96374; 96375; 99285; J1885; J2360

== ENCOUNTER 2019-10-01 02:14 | Emergency (ER) | payer OTHER ==
[2019-10-01 03:22] LABS: CREATININE 1.2 mg/dL (0.5-1.5); POTASSIUM 3.9 mmol/L (3.5-5.1)
[2019-10-01 03:26] LABS: ALBUMIN 3.9 g/dL (3.5-5.0); BILIRUBIN,TOTAL 0.3 mg/dL (0.2-1.0); TOTAL PROTEIN, SERUM 7.4 g/dL (6.0-8.3)
[2019-10-01 03:32] LABS: BASOPHILS % (AUTO) 0.7 % (0.0-5.0); EOSINOPHILS % (AUTO) 1.9 % (0.0-8.0); HEMATOCRIT 35.9 % (42-54); MEAN CORPUSCULAR HGB CONC 34.3 g/dL (32.0-36.0); MEAN CORPUSCULAR VOLUME 81.6 fL (79-99); MONOCYTES % (AUTO) 9.2 % (3.0-13.0); NEUTROPHILS % (AUTO) 47.8 % (40.0-77.0); PLATELET COUNT (AUTO) 323 K/uL (130-400); WHITE BLOOD COUNT (AUTO) 8.4 K/uL (4.8-10.8)
[2019-10-01 03:35] LABS: APPEARANCE,URINE Clear (CLEAR); BILIRUBIN,URINE Negative (NEGATIVE); COLOR,URINE Yellow (YELLOW); GLUCOSE, URINE (UA) Negative (NEGATIVE); KETONES,URINE Negative (NEGATIVE); LEUKOCYTE ESTERASE ,URINE Negative (NEGATIVE); NITRATE,URINE Negative (NEGATIVE); OCCULT BLOOD,URINE Negative (NEGATIVE); PH,URINE 6.5 (5.0-8.0); PROTEIN,URINE Negative (NEGATIVE)
[2019-10-01 03:54] LABS: INR 1.05 (0.85-1.15); PARTIAL THROMBOPLASTIN TIME 26.8 SEC (26.3-35.5)
[2019-10-01] MEDS ORDERED: FAMOTIDINE/PF 20 MG/2 ML VIAL IV ONE (04:39)
[2019-10-01] MEDS ORDERED: ONDANSETRON HCL 4 MG/2 ML VIAL ONE (04:39)
[2019-10-01 05:30] LABS: HEMATOCRIT 35.9 % (42-54)
== END 2019-10-01 06:43 | disposition home or self-care (01) ==
LOC: EDH 02:14
DX: K62.5 Hemorrhage of anus and rectum (principal); R10.13 Epigastric pain
CPT/HCPCS: 36415; 80053; 81003; 82270; 85014; 85018; 85025; 85610; 85730; 96374; 96375; 99285; J2405; J3490

== ENCOUNTER 2019-10-08 01:22 | Inpatient (IN) | payer OTHER ==
[~2019-10-08] VITALS: Ht 172.7 cm; Wt 86.6 kg
[2019-10-08] VITALS (18 sets, daily range): BP systolic 101–148; BP diastolic 62–102
[2019-10-08 02:50] LABS: BASOPHILS % (AUTO) 0.9 % (0.0-5.0); EOSINOPHILS % (AUTO) 1.4 % (0.0-8.0); HEMATOCRIT 37.8 % (42-54); LYMPHOCYTES % (AUTO) 39.4 % (21.0-51.0); MEAN CORPUSCULAR HEMOGLOBIN 27.6 pg (27.0-33.0); MEAN CORPUSCULAR HGB CONC 33.3 g/dL (32.0-36.0); MEAN CORPUSCULAR VOLUME 82.7 fL (79-99); MONOCYTES % (AUTO) 7.8 % (3.0-13.0); NEUTROPHILS % (AUTO) 50.2 % (40.0-77.0); PLATELET COUNT (AUTO) 348 K/uL (130-400); RED BLOOD CELL COUNT(AUTO) 4.57 MIL/uL (4.50-6.20); RED CELL DISTRIBUTION WIDTH 12.8 % (11.0-15.5); WHITE BLOOD COUNT (AUTO) 8.7 K/uL (4.8-10.8)
[2019-10-08 02:59] LABS: CREATININE 1.3 mg/dL (0.5-1.5); POTASSIUM 3.5 mmol/L (3.5-5.1)
[2019-10-08 03:04] LABS: ALBUMIN 4.2 g/dL (3.5-5.0); BILIRUBIN,TOTAL 0.4 mg/dL (0.2-1.0); TOTAL PROTEIN, SERUM 7.7 g/dL (6.0-8.3)
[2019-10-08 03:46] LABS: INR 1.1 (0.85-1.15); PARTIAL THROMBOPLASTIN TIME 26.6 SEC (26.3-35.5); PROTHROMBIN TIME 11.5 SEC (9.6-11.6)
[2019-10-08] MEDS ORDERED: SODIUM CHLORIDE 0.9% 100 ML IV ONE (05:06)
[2019-10-08] MEDS: LACTATED RINGERS 1000ML 1,000 ML IV SCH ×2 (05:15→15:34)
[2019-10-08] MEDS ORDERED: MORPHINE SULFATE 2 MG/ML 1ML SYG IVP PRN (05:15)
[2019-10-08] MEDS ORDERED: MORPHINE SULFATE 2 MG/ML 1ML SYG ONE (06:25)
[2019-10-08] MEDS ORDERED: ONDANSETRON HCL 4 MG/2 ML VIAL ONE (06:25)
[2019-10-08] MEDS ORDERED: LACTATED RINGERS 1000ML 1,000 ML IV ONE (06:26)
--- NOTE | 2019-10-08 06:51 | NUR ---
ADMIT PT ADMITTED TO ROOM ACCOMPANIED BY OFFICER FROM THE [facility]. ADMISSION CARE AND ASSESSMENT DONE. UPDATED ADMISSION DATA BASE. PCP IN AND INITIAL V/S MONITORED, STABLE. CONTINUED IVF OF LR REGULATED AT 75CC/HR AND PROTONIX DRIP. PT CLAIMS OF HAVING GENERALIZED ABDOMINAL PAINS THAT HAVE SUBSIDED A BIT FROM MORPHINE DOSE GIVEN IN THE ED. ORIENTED TO ROOM AND UNIT. IN FOR MORE CARE AND MANAGEMENT. Addendum: 10/08/19 at 0747 by DENNIS RIVERA RN RN Amended: Links added.
[2019-10-08] MEDS ORDERED: LEVE10006 PO (08:00)
[2019-10-08] MEDS ORDERED: HYD25 PO (08:00)
[2019-10-08] MEDS ORDERED: FAMO20TA8 PO (08:00)
[2019-10-08] MEDS ORDERED: CALC625T31 PO (08:00)
[2019-10-08] MEDS ORDERED: SUCR1TAB2 PO (08:00)
[2019-10-08] MEDS ORDERED: PANTOPRAZOLE SODIUM 80 MG in SODIUM CHLORIDE 0.9% 100 ML IV SCH (09:00)
[2019-10-08 10:43] LABS: HEMATOCRIT 35.5 % (42-54)
--- NOTE | 2019-10-08 11:22 | NUR ---
SS REFERRAL Sw met with pt and officer at bedside. Pt is in custody of [facility] and officer stated he does not need to be seen by a social worker health services.
[2019-10-08] MEDS: ONDANSETRON HCL 4 MG/2 ML VIAL IV PRN ×2 (12:14→18:25)
[2019-10-08] MEDS: MORPHINE SULFATE 2 MG/ML 1ML SYG IVP PRN ×2 (12:16→18:25)
[2019-10-08] MEDS ORDERED: PROPOFOL 10 MG/ML 20ML VIAL IV ONE (13:53)
[2019-10-08] MEDS ORDERED: MIDAZOLAM HCL 1 MG/ML 2ML VIAL ONE (13:54)
--- NOTE | 2019-10-08 14:39 | NUR ---
INITIAL Patient is under custody of [facility] Department. Next of kin is spouse, Xiomy Miller, [phone]. Patient will return to [facility] upon discharge. Nurse can call report to [phone] and request to speak to [facility]. Addendum: 10/08/19 at 1442 by JENNA PAREKH SS Amended: Links added.
[2019-10-08 18:45] LABS: HEMATOCRIT 36.1 % (42-54)
[2019-10-08] MEDS: PHARMACY COMMUNICATION MISC SCH (21:30)
[2019-10-09] VITALS (22 sets, daily range): BP systolic 110–141; BP diastolic 57–98
[2019-10-09] MEDS: ONDANSETRON HCL 4 MG/2 ML VIAL IV PRN ×2 (00:25→06:26)
[2019-10-09] MEDS: MORPHINE SULFATE 2 MG/ML 1ML SYG IVP PRN ×2 (00:25→06:27)
[2019-10-09 01:34] LABS: HEMATOCRIT 37.6 % (42-54)
[2019-10-09] MEDS: PHARMACY COMMUNICATION MISC SCH ×2 (04:54→13:30)
[2019-10-09 05:46] LABS: BASOPHILS % (AUTO) 0.8 % (0.0-5.0); EOSINOPHILS % (AUTO) 3.5 % (0.0-8.0); HEMATOCRIT 38.6 % (42-54); LYMPHOCYTES % (AUTO) 35.6 % (21.0-51.0); MEAN CORPUSCULAR HEMOGLOBIN 27.6 pg (27.0-33.0); MEAN CORPUSCULAR HGB CONC 32.9 g/dL (32.0-36.0); MEAN CORPUSCULAR VOLUME 83.9 fL (79-99); MONOCYTES % (AUTO) 8.3 % (3.0-13.0); NEUTROPHILS % (AUTO) 51.7 % (40.0-77.0); PLATELET COUNT (AUTO) 319 K/uL (130-400); RED CELL DISTRIBUTION WIDTH 12.9 % (11.0-15.5); WHITE BLOOD COUNT (AUTO) 7.2 K/uL (4.8-10.8)
[2019-10-09 05:56] LABS: CREATININE 1.3 mg/dL (0.5-1.5); POTASSIUM 3.8 mmol/L (3.5-5.1)
[2019-10-09] MEDS: LACTATED RINGERS 1000ML 1,000 ML IV SCH (07:55)
[2019-10-09] MEDS ORDERED: PANTOPRAZOLE SODIUM 40 MG TABLET.DR PO SCH (09:00)
[2019-10-09] MEDS ORDERED: KETOROLAC TROMETHAMINE 15MG/ML IV PRN (11:00)
[2019-10-09] MEDS ORDERED: HYDROCODONE/ACETAMINOPHEN 5/325 MG TAB PO PRN (11:00)
[2019-10-09] MEDS ORDERED: PROPOFOL 10 MG/ML 20ML VIAL IV ONE (13:48)
[2019-10-09] MEDS ORDERED: MAGNESIUM CITRATE 296 ML SOLUTION PO SCH (16:45)
[2019-10-09] MEDS ORDERED: LACTULOSE 20 GM/30 ML UDCUP PO SCH ×2 (16:45→17:45)
[2019-10-09] MEDS ORDERED: MAGNESIUM CITRATE 296 ML SOLUTION ONE (16:55)
[2019-10-09] MEDS ORDERED: PEG 3350/NA SULF,BICARB,CL/KCL 4000 ML SOLN ONE (16:55)
[2019-10-09] MEDS ORDERED: LACTULOSE 20 GM/30 ML UDCUP ONE (16:55)
[2019-10-09] MEDS ORDERED: PEG 3350/NA SULF,BICARB,CL/KCL 4000 ML SOLN PO SCH (17:00)
--- NOTE | 2019-10-09 19:52 | NUR ---
SIGNING OUT AMA PT REQUESTING TO SIGN OUT AMA DUE TO FAMILY EMERGENCY. PT NO LONGER UNDER THE CUSTODY OF [facility]. PT ADVISED THAT COLONOSCOPY PROCEDURE IS SCHEDULED FOR TOMORROW AND PT WOULD BENEFIT FROM IT. PT CONTINUES TO REFUSE DUE TO HIS FAMILY EMERGENCY, STATES WILL FOLLOWUP WITH DR. CASTILLO AT HIS OFFICE FOR RESCHEDULED COLONOSCOPY. IV CATHETER TO RIGHT ARM AND LEFT ARM BOTH DISCONTINUED AT THIS TIME. AMA PAPER SIGNED. MADE AWARE.
--- NOTE | 2019-10-09 20:57 | NUR ---
DR. CASTILLO MADE AWARE THAT PT SIGNED OUT AMA. COLONOSCOPY THAT WAS SCHEDULED FOR 10/10/19, CANCELLED.
== END 2019-10-09 20:00 | disposition left against medical advice (07) | DRG 378 ==
LOC: EEVIPCON 01:22 → EDH 01:22 → EDHIP 01:23 → 4BH 05:53 → 4CH 05:54
PROVIDERS: ADMIT Family Medicine; ATTEND Family Medicine
PROC: 0DJ08ZZ Inspection of Upper Intestinal Tract, Via Natural or Artificial Opening Endoscopic (ICD-10-PCS; principal; 2019-10-08)
PROC: 0DJD8ZZ Inspection of Lower Intestinal Tract, Via Natural or Artificial Opening Endoscopic (ICD-10-PCS; 2019-10-08)
DX: K29.01 Acute gastritis with bleeding (principal); D62 Acute posthemorrhagic anemia; K21.0 Gastro-esophageal reflux disease with esophagitis; E78.5 Hyperlipidemia, unspecified; F41.9 Anxiety disorder, unspecified; I10 Essential (primary) hypertension; I25.2 Old myocardial infarction; Z82.3 Family history of stroke; Z83.3 Family history of diabetes mellitus; Z82.49 Family history of ischemic heart disease and other diseases of the circulatory system
CPT/HCPCS: 36415; 43235; 44360; 74176; 80048; 80053; 82270; 85014; 85018; 85025; 85610; 85730; A4606; C9113; G0378; J1885; J2250; J2405; J2704; J7030; J7120

== ENCOUNTER 2019-10-22 22:03 | Emergency (ER) | payer OTHER ==
[~2019-10-22 22:03] MED LIST changes: +CALC625T31 PO; -CETI10TA57 PO; -DOXA2TAB2 PO; +FAMO20TA8 PO; -IPRA21SP NS; -IRON1CAP32 PO; +LEVE10006 PO; -MOME13HF IH; -MULT-1224 PO; -OMEP40CA13 PO; -SERT25TA5 PO; +SUCR1TAB2 PO
[2019-10-22 22:25] LABS: APPEARANCE,URINE Clear (CLEAR); BILIRUBIN,URINE Negative (NEGATIVE); COLOR,URINE Dark Yellow (YELLOW); GLUCOSE, URINE (UA) Negative (NEGATIVE); KETONES,URINE Trace mg/dL (NEGATIVE); LEUKOCYTE ESTERASE ,URINE Negative (NEGATIVE); NITRATE,URINE Negative (NEGATIVE); OCCULT BLOOD,URINE Negative (NEGATIVE); PH,URINE 5.5 (5.0-8.0); PROTEIN,URINE Trace mg/dL (NEGATIVE)
[2019-10-22] MEDS ORDERED: LEVETIRACETAM 500 MG/5 ML SD VIAL IV ONE (22:27)
[2019-10-22] MEDS ORDERED: SODIUM CHLORIDE 0.9% 100 ML IV ONE (22:27)
[2019-10-22 22:34] LABS: BASOPHILS % (AUTO) 0.4 % (0.0-5.0); EOSINOPHILS % (AUTO) 1.4 % (0.0-8.0); HEMATOCRIT 36.5 % (42-54); LYMPHOCYTES % (AUTO) 40.7 % (21.0-51.0); MEAN CORPUSCULAR HEMOGLOBIN 28.2 pg (27.0-33.0); MEAN CORPUSCULAR HGB CONC 33.4 g/dL (32.0-36.0); MEAN CORPUSCULAR VOLUME 84.3 fL (79-99); MONOCYTES % (AUTO) 7.5 % (3.0-13.0); NEUTROPHILS % (AUTO) 49.6 % (40.0-77.0); PLATELET COUNT (AUTO) 534 K/uL (130-400); RED BLOOD CELL COUNT(AUTO) 4.33 MIL/uL (4.50-6.20); RED CELL DISTRIBUTION WIDTH 13.3 % (11.0-15.5); WHITE BLOOD COUNT (AUTO) 7.1 K/uL (4.8-10.8)
[2019-10-22 22:34] LABS: AMPHET/METH SCREEN,URINE NEGATIVE (NEGATIVE); BARBITURATE SCREEN, URINE NEGATIVE (NEGATIVE); BENZODIAZEPINES SCREEN,URINE POSITIVE (NEGATIVE); CANNABINOID SCREEN,URINE POSITIVE (NEGATIVE); COCAINE SCREEN,URINE POSITIVE (NEGATIVE); OPIATE SCREEN,URINE NEGATIVE (NEGATIVE); PHENCYCLIDINE SCREEN,URINE NEGATIVE (NEGATIVE)
[2019-10-22 22:49] LABS: CREATININE 1.3 mg/dL (0.5-1.5); POTASSIUM 3.1 mmol/L (3.5-5.1)
[2019-10-22 22:53] LABS: ALBUMIN 3.8 g/dL (3.5-5.0); BILIRUBIN,TOTAL 0.2 mg/dL (0.2-1.0); TOTAL PROTEIN, SERUM 7.5 g/dL (6.0-8.3)
[2019-10-22] MEDS ORDERED: POTASSIUM BICARB/CIT AC 25 MEQ TABLET.EFF ONE (23:04)
[2019-10-22 23:07] LABS: BACTERIA,URINE Few /HPF (None Seen); CALCIUM OXALATE CRYSTALS,UR Moderate /LPF (None Seen); RBC,URINE 0-1 /HPF (0-1); SQUAMOUS EPITHELIAL CELL,UR 0-2 /HPF (0-2); WBC,URINE 0-1 /HPF (0-1)
== END 2019-10-22 23:13 | disposition home or self-care (01) ==
LOC: EDH 22:03
DX: G40.909 Epilepsy, unspecified, not intractable, without status epilepticus (principal); F19.10 Other psychoactive substance abuse, uncomplicated; I10 Essential (primary) hypertension; E78.5 Hyperlipidemia, unspecified; F41.9 Anxiety disorder, unspecified; I25.2 Old myocardial infarction
CPT/HCPCS: 36415; 80053; 80305; 81001; 82550; 85025; 96365; 99284; J1953

== ENCOUNTER 2019-10-25 01:48 | Emergency (ER) | payer OTHER ==
[2019-10-25] MEDS ORDERED: LEVETIRACETAM 500 MG TABLET PO ONE (02:27)
== END 2019-10-25 03:51 ==
LOC: EDH 01:48
DX: F10.129 Alcohol abuse with intoxication, unspecified (principal); R56.9 Unspecified convulsions; F41.9 Anxiety disorder, unspecified; E78.5 Hyperlipidemia, unspecified; I10 Essential (primary) hypertension; I25.2 Old myocardial infarction; W18.39XA Other fall on same level, initial encounter; Y93.89 Activity, other specified; Y92.89 Other specified places as the place of occurrence of the external cause; Y90.9 Presence of alcohol in blood, level not specified; Y99.8 Other external cause status
CPT/HCPCS: 70450

== ENCOUNTER 2020-04-01 14:56 | Emergency (ER) | payer MEDICAID ==
[2020-04-01] MEDS ORDERED: ONDANSETRON HCL 4 MG/2 ML VIAL ONE (15:29)
[2020-04-01] MEDS ORDERED: KETOROLAC TROMETHAMINE 60 MG/2 ML VIAL ONE (15:29)
[2020-04-01 15:49] LABS: CARBON DIOXIDE 25 mmol/L (21-32); CHLORIDE 107 mmol/L (101-111); GLOMERULAR FILTR. RATE CALC 91 mL/min (>60); GLUCOSE,RANDOM 86 mg/dL (70-105); SODIUM SERUM 139 mmol/L (136-145); UREA NITROGEN, BLOOD 15 mg/dL (7-18)
[2020-04-01 15:52] LABS: BASOPHILS % (AUTO) 0.9 % (0.0-5.0); EOSINOPHILS % (AUTO) 2.7 % (0.0-8.0); HEMATOCRIT 44.3 % (42-54); LYMPHOCYTES % (AUTO) 34.6 % (21.0-51.0); MEAN CORPUSCULAR HEMOGLOBIN 28.3 pg (27.0-33.0); MEAN CORPUSCULAR HGB CONC 34.1 g/dL (32.0-36.0); MEAN CORPUSCULAR VOLUME 83.1 fL (79-99); MONOCYTES % (AUTO) 8.2 % (3.0-13.0); NEUTROPHILS % (AUTO) 52.9 % (40.0-77.0); PLATELET COUNT (AUTO) 272 K/uL (130-400); RED BLOOD CELL COUNT(AUTO) 5.33 MIL/uL (4.50-6.20); RED CELL DISTRIBUTION WIDTH 14.8 % (11.0-15.5); WHITE BLOOD COUNT (AUTO) 8.6 K/uL (4.8-10.8)
[2020-04-01 15:54] LABS: APPEARANCE,URINE Clear (CLEAR); BILIRUBIN,URINE Negative (NEGATIVE); COLOR,URINE Yellow (YELLOW); GLUCOSE, URINE (UA) Negative (NEGATIVE); KETONES,URINE Trace mg/dL (NEGATIVE); LEUKOCYTE ESTERASE ,URINE Negative (NEGATIVE); NITRATE,URINE Negative (NEGATIVE); OCCULT BLOOD,URINE Negative (NEGATIVE); PROTEIN,URINE Negative (NEGATIVE)
[2020-04-01 15:54] LABS: ALANINE AMINOTRANSFERASE 35 U/L (12-78); ALBUMIN 3.3 g/dL (3.5-5.0); ASPARTATE AMINOTRANSFERASE 23 U/L (10-37); CREATINE KINASE, TOTAL 137 U/L (21-232); LIPASE 112 U/L (114-286); TOTAL PROTEIN, SERUM 6.2 g/dL (6.0-8.3)
[2020-04-01 16:02] LABS: AMPHET/METH SCREEN,URINE NEGATIVE (NEGATIVE); BARBITURATE SCREEN, URINE NEGATIVE (NEGATIVE); BENZODIAZEPINES SCREEN,URINE POSITIVE (NEGATIVE); CANNABINOID SCREEN,URINE NEGATIVE (NEGATIVE); COCAINE SCREEN,URINE NEGATIVE (NEGATIVE); OPIATE SCREEN,URINE NEGATIVE (NEGATIVE); PHENCYCLIDINE SCREEN,URINE NEGATIVE (NEGATIVE)
[2020-04-01 16:05] LABS: BILIRUBIN,TOTAL 0.2 mg/dL (0.2-1.0)
[2020-04-01 16:08] LABS: BILIRUBIN,DIRECT < 0.1 mg/dL (0.0-0.3)
== END 2020-04-01 17:41 | disposition home or self-care (01) ==
LOC: EDH 14:56
DX: R10.84 Generalized abdominal pain (principal); F41.9 Anxiety disorder, unspecified; I10 Essential (primary) hypertension; E78.5 Hyperlipidemia, unspecified; F14.10 Cocaine abuse, uncomplicated; F10.10 Alcohol abuse, uncomplicated; F12.10 Cannabis abuse, uncomplicated; I25.2 Old myocardial infarction; Z72.0 Tobacco use
CPT/HCPCS: 36415; 74018; 80048; 80076; 80305; 81003; 82550; 83690; 85025; 96372; 96374; 99284; J1885; J2405

== ENCOUNTER 2020-07-15 13:25 | Emergency (ER) | payer MEDICAID ==
[2020-07-15 14:09] LABS: BASOPHILS % (AUTO) 1.2 % (0.0-5.0); EOSINOPHILS % (AUTO) 3.6 % (0.0-8.0); HEMATOCRIT 35.2 % (42-54); LYMPHOCYTES % (AUTO) 39.5 % (21.0-51.0); MEAN CORPUSCULAR HEMOGLOBIN 29.3 pg (27.0-33.0); MEAN CORPUSCULAR HGB CONC 34.1 g/dL (32.0-36.0); MEAN CORPUSCULAR VOLUME 86.1 fL (79-99); MONOCYTES % (AUTO) 9.2 % (3.0-13.0); NEUTROPHILS % (AUTO) 46.2 % (40.0-77.0); PLATELET COUNT (AUTO) 275 K/uL (130-400); RED BLOOD CELL COUNT(AUTO) 4.09 MIL/uL (4.50-6.20); RED CELL DISTRIBUTION WIDTH 12.2 % (11.0-15.5); WHITE BLOOD COUNT (AUTO) 6.7 K/uL (4.8-10.8)
[2020-07-15 14:18] LABS: APPEARANCE,URINE Clear (CLEAR); BILIRUBIN,URINE Negative (NEGATIVE); COLOR,URINE Dark Yellow (YELLOW); GLUCOSE, URINE (UA) Negative (NEGATIVE); KETONES,URINE Negative (NEGATIVE); LEUKOCYTE ESTERASE ,URINE Negative (NEGATIVE); NITRATE,URINE Negative (NEGATIVE); OCCULT BLOOD,URINE Negative (NEGATIVE); PROTEIN,URINE Negative (NEGATIVE)
[2020-07-15 14:23] LABS: PARTIAL THROMBOPLASTIN TIME 25.9 SEC (26.3-35.5); PROTHROMBIN TIME 10.8 SEC (9.6-11.6)
[2020-07-15 14:30] LABS: POTASSIUM 3.5 mmol/L (3.5-5.1)
[2020-07-15 14:34] LABS: ALBUMIN 3.6 g/dL (3.5-5.0); BILIRUBIN,TOTAL 0.4 mg/dL (0.2-1.0); TOTAL PROTEIN, SERUM 6.9 g/dL (6.0-8.3)
[2020-07-15] MEDS ORDERED: ACETAMINOPHEN EXTRA STRENGTH 500 MG TABLET ONE (14:49)
== END 2020-07-15 15:24 | disposition home or self-care (01) ==
LOC: EDH 13:25
DX: M79.662 Pain in left lower leg (principal); E11.9 Type 2 diabetes mellitus without complications; I10 Essential (primary) hypertension; E78.5 Hyperlipidemia, unspecified; I25.2 Old myocardial infarction
CPT/HCPCS: 36415; 71045; 73590; 80053; 81003; 84484; 85025; 85610; 85730; 87426; 93005; 93971

== ENCOUNTER 2021-06-24 17:36 | Emergency (ER) | payer MEDICAID ==
[~2021-06-24] VITALS: Ht 172.7 cm; Wt 113.4 kg
[~2021-06-24 17:36] MED LIST changes: +ACET-2743 PO; +ALPR1TAB7 PO; -BUPR200T34 PO; -CALC625T31 PO; +CHOL100040 PO; -DILT240C46 PO; -FAMO20TA8 PO; -FENO145T26 PO; +FISH1CAP63 PO; +FLUO10TA3 PO; +GABA-529 PO; -HYD25 PO; +LISI1TAB53 PO; +MULT-1192 PO; +PANT40TA PO; +SIMV-43 PO; -SIMV10TA97 PO; -SUCR1TAB2 PO; +TRAZ-185 PO
[2021-06-24] MEDS ORDERED: IOHEXOL 350 MG/ML 100ML INFUS..BTL IV ONE (18:01)
[2021-06-24 19:00] VITALS: BP 116/80
[2021-06-24] MEDS ORDERED: NAPR-1196 PO (19:08)
== END 2021-06-24 19:18 | disposition home or self-care (01) ==
LOC: EDH 17:36
DX: M54.50 Low back pain, unspecified (principal); M25.551 Pain in right hip; M25.531 Pain in right wrist; E78.00 Pure hypercholesterolemia, unspecified; I10 Essential (primary) hypertension; F41.9 Anxiety disorder, unspecified; I25.2 Old myocardial infarction; Z79.899 Other long term (current) drug therapy; W18.39XA Other fall on same level, initial encounter; Y93.89 Activity, other specified; Y92.89 Other specified places as the place of occurrence of the external cause; Y99.8 Other external cause status
CPT/HCPCS: 70450; 71260; 72125; 74177; 93005; 99285; Q9967

== ENCOUNTER 2022-03-10 10:56 | Emergency (ER) | payer MEDICAID ==
[~2022-03-10] VITALS: Ht 172.7 cm; Wt 102.1 kg
[~2022-03-10 10:56] MED LIST changes: +NAPR-1196 PO
[2022-03-10 11:23] LABS: BASOPHILS % (AUTO) 0.9 % (0.0-5.0); EOSINOPHILS % (AUTO) 1.1 % (0.0-8.0); MEAN CORPUSCULAR HEMOGLOBIN 30.6 pg (27.0-33.0); MEAN CORPUSCULAR HGB CONC 35.1 g/dL (32.0-36.0); MEAN CORPUSCULAR VOLUME 87.1 fL (79-99); MONOCYTES % (AUTO) 7.7 % (3.0-13.0); NEUTROPHILS % (AUTO) 58.9 % (40.0-77.0); PLATELET COUNT (AUTO) 272 K/uL (130-400); RED BLOOD CELL COUNT(AUTO) 4.25 MIL/uL (4.50-6.20); RED CELL DISTRIBUTION WIDTH 12.1 % (11.0-15.5); WHITE BLOOD COUNT (AUTO) 7.8 K/uL (4.8-10.8)
[2022-03-10 11:29] LABS: AMPHET/METH SCREEN,URINE POSITIVE (NEGATIVE); BARBITURATE SCREEN, URINE NEGATIVE (NEGATIVE); BENZODIAZEPINES SCREEN,URINE NEGATIVE (NEGATIVE); CANNABINOID SCREEN,URINE NEGATIVE (NEGATIVE); COCAINE SCREEN,URINE POSITIVE (NEGATIVE); PHENCYCLIDINE SCREEN,URINE NEGATIVE (NEGATIVE)
[2022-03-10 11:36] LABS: POTASSIUM 3.3 mmol/L (3.5-5.1)
[2022-03-10 11:49] LABS: B-TYPE NATRIURETIC PEPTIDE < 5 pg/mL (0-100)
[2022-03-10 11:50] LABS: TOTAL PROTEIN, SERUM 7.7 g/dL (6.0-8.3)
[2022-03-10] MEDS ORDERED: ASPIRIN 81MG CHEW TAB PO ONE (13:00)
[2022-03-10] MEDS ORDERED: IOHEXOL 350 MG/ML 100ML INFUS..BTL IV ONE (13:17)
[2022-03-10] MEDS ORDERED: 0.9%NACL 1000ML 1,000 ML IV SCH (15:00)
[2022-03-10 20:31] VITALS: BP 113/75
[2022-03-13 12:10] LABS: OPIATES SCREEN URINE Negative ng/mL (Cutoff=300)
== END 2022-03-10 21:03 | disposition short-term general hospital (02) ==
LOC: EDH 10:56
DX: R07.89 Other chest pain (principal); R06.02 Shortness of breath; R53.1 Weakness; Z20.822 Contact with and (suspected) exposure to COVID-19; E78.5 Hyperlipidemia, unspecified; F41.9 Anxiety disorder, unspecified; I10 Essential (primary) hypertension; I25.10 Atherosclerotic heart disease of native coronary artery without angina pectoris; I25.2 Old myocardial infarction; Z79.1 Long term (current) use of non-steroidal anti-inflammatories (NSAID); Z79.82 Long term (current) use of aspirin; Z79.899 Other long term (current) drug therapy; Z86.718 Personal history of other venous thrombosis and embolism; Z86.73 Personal history of transient ischemic attack (TIA), and cerebral infarction without residual deficits
CPT/HCPCS: 99285; 70496; 70551; 96360; 96361; 71045; 87635; 82550; 84484; 80053; 83880; 80305; 85025; 36415; 70498; 93005; 70450; C9803; J7030; Q9967

== ENCOUNTER 2024-08-12 01:06 | Emergency (ER) | payer MEDICAID ==
[~2024-08-12] VITALS: Ht 172.7 cm; Wt 104.3 kg
[~2024-08-12 01:06] MED LIST changes: -FLUO10TA3 PO; +FLUO10TA35 PO
[2024-08-12 01:26] LABS: BASOPHILS # (AUTO) 0.07 K/uL (0.00-0.20); BASOPHILS % (AUTO) 0.5 % (0.0-5.0); EOSINOPHILS # (AUTO) 0.05 K/uL (0.00-0.70); EOSINOPHILS % (AUTO) 0.4 % (0.0-8.0); HEMATOCRIT 40.6 % (42-54); IMMATURE GRANULOCYTE ABSOLUTE 0.06 K/uL (0-1); LYMPHOCYTES # (AUTO) 2.9 K/uL (1.0-4.8); LYMPHOCYTES % (AUTO) 20.1 % (21.0-51.0); MEAN CORPUSCULAR HEMOGLOBIN 30.6 pg (27.0-33.0); MEAN CORPUSCULAR HGB CONC 34.5 g/dL (32.0-36.0); MEAN CORPUSCULAR VOLUME 88.8 fL (79-99); NEUTROPHILS # (AUTO) 10.2 K/uL (1.8-7.7); NEUTROPHILS % (AUTO) 71.6 % (40.0-77.0); PLATELET COUNT (AUTO) 278 K/uL (130-400); RED BLOOD CELL COUNT(AUTO) 4.57 MIL/uL (4.50-6.20); RED CELL DISTRIBUTION WIDTH 12.8 % (11.0-15.5); WHITE BLOOD COUNT (AUTO) 14.2 K/uL (4.8-10.8)
[2024-08-12 01:31] VITALS: TEMP 97.8
[2024-08-12 01:38] LABS: CREATININE 0.9 mg/dL (0.5-1.3); POTASSIUM 4.2 mmol/L (3.5-5.1)
[2024-08-12 01:42] LABS: ALBUMIN 3.7 g/dL (3.5-5.0); BILIRUBIN,TOTAL 0.4 mg/dL (0.2-1.0); TOTAL PROTEIN, SERUM 7.2 g/dL (6.0-8.3)
--- NOTE | 2024-08-12 01:56 | ERN ---
ED Note History of Present Illness Stated Complaint: CHEST PAIN Chief Complaint: Chest Pain Time Seen by MD: : Time Seen by Midlevel: :09 Dictation: 39-year-old male who presents to the emergency department per EMS for evaluation due to reported having chest pain that began 3 hours ago. Initially, he rated the discomfort as a 3/10. At this time, he rates the discomfort as an 8/10. Patient describes the pain as an aching/pressure type of sensation and the anterior chest wall area. He says that he does not feel from anxiety and can not really pinpoint if that is what is occurring at this time as well. States that he does not find anything that can made the chest pain better or worse. Patient states that he has got a history of diabetes, hypertension and hypercholesterolemia. Upon initial evaluation, the patient presents in no acute distress. Allergies: Coded Allergies: No Known Drug Allergies (Unverified Allergy, Unknown, 02/02/19) Home Meds Active Scripts Naproxen (Naproxen) 250 Mg Tablet, 250 MG PO BID, #20 TAB Prov:LUISA STRINGER MD 06/24/21 Reported Medications Lisinopril/Hydrochlorothiazide (Lisinopril-Hctz 20-25 mg Tab) 1 Each Tablet, 1 EACH PO DAILY, TAB 12/15/20 Acetaminophen (Tylenol Extra Strength) 500 Mg Tablet, 1000 MG PO BID PRN for PAIN LEVEL 2 TO 5, TAB 09/29/20 Cholecalciferol (Vitamin D3) (Vitamin D3) 25 Mcg Capsule, 50 MCG PO DAILY, CAP 09/29/20 Gabapentin (Gabapentin) 100 Mg Capsule, 100 MG PO TID, CAP 09/29/20 Alprazolam (Alprazolam) 1 Mg Tablet, 1 MG PO TIDP PRN for anxiety, TAB 09/29/20 Pantoprazole Sodium (Protonix) 40 Mg Tablet.dr, 40 MG PO BID, TAB 09/29/20 Fluoxetine HCl (Fluoxetine HCl) 10 Mg Tablet, 10 MG PO DAILY, TAB 09/29/20 Simvastatin (Simvastatin) 20 Mg Tablet, 20 MG PO HS, TAB 09/29/20 Trazodone HCl (Trazodone HCl) 50 Mg Tablet, 50 MG PO HS, TAB 09/29/20 Multivitamin (Multi-Vitamin Daily) 1 Each Tablet, 1 EACH PO DAILY, TAB 09/29/20 Fish Oil/Dha/Epa (Fish Oil 1,200 mg Fish Oil) 1 Each Capsule, 1 EACH PO DAILY, CAP 09/29/20 Levetiracetam (Levetiracetam) 1,000 Mg Tablet, 1000 MG PO BID, TAB 10/08/19 Past Medical History Past Medical History: Anxiety, CAD, CVA, Diabetes-Type II, Hypertension, MA Additional Past Medical Hx: DVT LOWER EXT Surgical History: Other Surgical History Other: SPINAL FUSION PSYCH History: anxiety Social History: Drugs, ETOH, Lives with family RN Note Reviewed/Agreed w/PFSH: Yes Review of System Dictation See HPI. Initial Vital Sign VS Vital Signs Date Time Temp Pulse Resp B/P (MAP) Pulse Ox O2 Delivery O2 Flow Rate FiO2 08/12/24 01:08 98.1 66 16 152/94 97 Room Air 0 08/12/24 01:31 21 Physical Exam Dictation General: awake, alert, NAD Head/Face: Normocephalic, atraumatic Eyes: PERRL, EOMI ENT: Oral mucosa moist Neck: Trachea midline, supple Cardiovascular: RRR, no edema Respiratory: Symmetrical, non-labored Abdomen: Soft, non-tender, non-distended, no guarding. Skin: Warm, dry, good turgor, no rash MS/Extremity: Pulses equal, no cyanosis, neurovascular intact, FROM Neuro: COAx4, GCS 15, steady gait, Psych: Normal behavior, mood, and affect normal Results (Laboratory/Radiology) Laboratory/Radiology Laboratory Tests Test 08/12/24 01:17 08/12/24 03:05 White Blood Count 14.2 K/uL (4.8-10.8) H Red Blood Count 4.57 MIL/uL (4.50-6.20) Hemoglobin 14.0 g/dL (14.0-18.0) Hematocrit 40.6 % (42-54) L Mean Corpuscular Volume 88.8 fL (79-99) Mean Corpuscular Hemoglobin 30.6 pg (27.0-33.0) Mean Corpuscular Hemoglobin Concent 34.5 g/dL (32.0-36.0) Red Cell Distribution Width 12.8 % (11.0-15.5) Platelet Count 278 K/uL (130-400) Mean Platelet Volume 8.4 fL (7.5-10.5) Immature Granulocyte % (Auto) 0.4 % (0-1) Neutrophils (%) (Auto) 71.6 % (40.0-77.0) Lymphocytes (%) (Auto) 20.1 % (21.0-51.0) L Monocytes (%) (Auto) 7.0 % (3.0-13.0) Eosinophils (%) (Auto) 0.4 % (0.0-8.0) Basophils (%) (Auto) 0.5 % (0.0-5.0) Neutrophils # (Auto) 10.2 K/uL (1.8-7.7) H Lymphocytes # (Auto) 2.9 K/uL (1.0-4.8) Monocytes # (Auto) 1.0 K/uL (0.1-1.0) Eosinophils # (Auto) 0.05 K/uL (0.00-0.70) Basophils # (Auto) 0.07 K/uL (0.00-0.20) Absolute Immature Granulocyte (auto 0.06 K/uL (0-1) Nucleated Red Blood Cells 0.0 % (0.0-0.19) Sodium Level 141 mmol/L (136-145) Potassium Level 4.2 mmol/L (3.5-5.1) Chloride Level 103 mmol/L (101-111) Carbon Dioxide Level 27 mmol/L (21-32) Blood Urea Nitrogen 16 mg/dL (7-18) Creatinine 0.9 mg/dL (0.5-1.3) Glomerular Filtration Rate Calc 111 mL/min (>90) Random Glucose 109 mg/dL (70-105) H Total Calcium 9.7 mg/dL (8.5-10.1) Total Bilirubin 0.4 mg/dL (0.2-1.0) Aspartate Amino Transf (AST/SGOT) 28 U/L (10-37) Alanine Aminotransferase (ALT/SGPT) 56 U/L (12-78) Alkaline Phosphatase 44 U/L (50-136) L Troponin I High Sensitivity 4 ng/L (4-75) 5 ng/L (4-75) Total Protein 7.2 g/dL (6.0-8.3) Albumin 3.7 g/dL (3.5-5.0) Whole Blood Glucose 89 MG/DL (70-110) EKG Comment: MN 173 MS QRS 105 MS QT 402 MS No STEMI. X-RAY Comment: Chest x-ray one view with no infiltrates as interpreted by me along with a normal appearing cardiac silhouette. ED Course ED Course Orders Procedure Category Date Status Time Troponin I High LAB 08/12/24 Complete Sensitivity 01:13 Cbc With Differential LAB 08/12/24 Complete 01:13 Comprehensive LAB 08/12/24 Complete Metabolic Panel 01:13 Chest 1vw RAD 08/12/24 Taken 01:13 Saline Lock Iv CPOE 08/12/24 Transmitted 01:13 12 Lead Ekg Tracing- EKG 08/12/24 Logged Technical 01:13 Ketorolac PHA 08/12/24 Complete Tromethamine 30mg/Ml 03:00 Troponin I High LAB 08/12/24 Complete Sensitivity 03:00 Current Medications Medications (Trade) Dose Ordered Sig/Derek Route PRN Reason Start Time Stop Time Status Last Admin Dose Admin Ketorolac Tromethamine (toRADol) 30 mg ONCE ONCE IVP 08/12/24 03:00 08/12/24 03:01 DC 08/12/24 03:11 Vital Signs Date Time Temp Pulse Resp B/P (MAP) Pulse Ox O2 Delivery O2 Flow Rate FiO2 08/12/24 03:50 65 19 125/79 96 Room Air* 0 21 08/12/24 02:31 69 23 115/65 97 Room Air* 0 21 08/12/24 01:31 97.9 67 20 131/91 99 Room Air* 0 21 08/12/24 01:08 98.1 66 16 152/94 97 Room Air 0 HEART Score Response (Comments) Value History: Low suspicion (0) 0 EKG: Normal 0 Age: < 45yrs (0) 0 Risk Factors: 1-2 risk factors (+1) 1 Initial Troponin: Normal limit (0) 0 HEART Score Risk: Low Risk for MACE (1-3) Total 1 Medical Decision Making MDM MDM: Differential diagnosis: Chest pain, non STEMI, acute anxiety. Rationale: Tests considered and ordered secondary to shared decision making include: Previous outside records reviewed: Old ER visits. Risk of complication and/or morbidity or mortality of patient management: None Medications-Per medication reconciliation Need for hospitalization: Patient does not meet criteria for hospitalization. Need for emergency major/minor surgery: No There are no social concerns with this patient. Prescription drug management Prescriptions will include symptomatic care Patient's prior external medical records from other ER visits were reviewed by me as indicated. Prior testing and results from previous visits were reviewed. Prior tests were taken into account with medical decision making and resource u tilization, independent historian/historians were used to obtain complete medical history. I independently interpreted the test that were performed, results were reviewed by me and considered findings on radiology if ordered. Medical management and examination interpretation discussions were had by me with other qualified healthcare professionals as indicated for the patient's ca re. DX & DISP Disposition: Discharge Departure Impression: Primary Impression: Chest pain Additional Impression: History of anxiety Condition: Stable Referrals: LILIANA AVENDANO MD (PCP) Time of Disposition: 03:41 ATTESTATION BY PHYSICIAN I PERFORMED THE SUBSTANTIVE PORTION OF THE VISIT. I HAVE REVIEWED AND PERSONALLY MADE AND APPROVED THE MANAGEMENT PLAN THAT IS DOCUMENTED IN THE NOTE BY MYSELF FOR THE A PP. I ACKNOWLEDGED FOR RESPONSIBILITY FOR THE PATIENT'S MANAGEMENT PLAN. HARRISON LOWERY Aug 12, 2024 01:56 LUISA STRINGER MD Aug 12, 2024 05:27
--- NOTE | 2024-08-12 03:09 | NUR ---
ED INDUSTRIAL PHARMACIST MADE AWARE OF BLOOD SUGAR. NO ORDERS AT THIS TIME
[2024-08-12] MEDS: ketOROlac 30MG VIAL (30MG/ML) IVP ONE (03:11)
[2024-08-12 03:50] VITALS: BP 125/79; PULSE 65; RESP 19; O2SAT 96
--- NOTE | 2024-08-12 07:20 | EKG ---
[facility] Test Date: 2024-08-12 Test Time: 01:53:32 Pat Name: AALIYAH PERALTA Department: ED Room: Gender: M Replenishment Associate: [id number] : 1985 Requested By: HARRISON LOWERY Order Number: [id number] Reading MD: Sophia Medrano Measurements Intervals [place] Rate: 57 P: 18 TX: 173 QRS: 0 QRSD: 105 T: 0 QT: 402 QTc: 393 Interpretive Statements Sinus rhythm Indeterminate axis ST elev, probable normal early repol pattern Compared to ECG 03/10/2022 10:54:22 Indeterminate axis now present ST (T wave) deviation now present Electronically Signed On 08-13-2024 08:11:59 PIN BALL MACHINE MECHANIC by Sophia Medrano Please click the below link to view image of tracing.
--- NOTE | 2024-08-12 10:15 | HMCIMG ---
CHEST 1VW HISTORY: Pain COMPARISON: 03/10/2022 FINDINGS: A frontal projection of the chest was obtained. No acute pulmonary infiltrates is seen. The heart is normal in size. Mild degenerative changes are seen. No evidence of aortic calcification is seen. IMPRESSION: 1. No acute pulmonary infiltrate is seen.
== END 2024-08-12 03:59 | disposition home or self-care (01) ==
LOC: EDBD 01:06 → EDH 01:06
DX: R07.89 Other chest pain (principal); F41.9 Anxiety disorder, unspecified; E11.9 Type 2 diabetes mellitus without complications; I10 Essential (primary) hypertension; Z79.899 Other long term (current) drug therapy; Z86.718 Personal history of other venous thrombosis and embolism; Z86.73 Personal history of transient ischemic attack (TIA), and cerebral infarction without residual deficits
CPT/HCPCS: 99285; 96374; 71045; 84484 ×2; 80053; 85025; 82948; 36415; 93005; J1885